=== PATIENT | female | born 1950 | race Caucasian/White ===

== ENCOUNTER → 2016-08-12 | Outpatient (CLI) | payer BC ==
[~2016-08-12] MED LIST: REGADENOSON 0.4 MG/5 ML DISP.SYRIN. IV ONE
== END | disposition home or self-care (01) ==
LOC: PCVCIMAG 08:34
PROVIDERS: ATTEND Internal Medicine Cardiovascular Disease
DX: Z01.810 Encounter for preprocedural cardiovascular examination (principal)
CPT/HCPCS: 78452; 93017; A9500; J2785

== ENCOUNTER → 2016-09-16 | Outpatient (CLI) | payer BC ==
[~2016-09-16] MED LIST changes: +ASCO500T2 PO; +ASPI325T4 PO; +CHOL10003 PO; +GLUC1CAP41 PO; +LIRA0.6P2 SQ; +LOSA1TAB17 PO; +METF-620 PO; +OMEG1CAP6 PO; +OMEP20TA63 PO; +PIOG45TA19 PO; +POTA10TA17 PO; +PROC10TA57 PO; -REGADENOSON 0.4 MG/5 ML DISP.SYRIN. IV ONE
[2016-09-16 11:25] LABS: BASO % 1 % (0-3); EOS % 1 % (0-3); HEMATOCRIT 40.9 % (36.0-47.0); HEMOGLOBIN 14.2 g/dL (12.0-15.5); LYMPH # 0.7 x10^3/uL (1.0-4.8); LYMPH % 16 % (24-48); MEAN CORPUSCULAR HEMOGLOBIN 31 pg (25-35); MEAN CORPUSCULAR HGB CONC 35 g/dL (31-37); MEAN CORPUSCULAR VOLUME 90 fL (79-100); MONO % 2 % (0-9); NEUT % 80 % (31-73); PLATELET COUNT 169 x10^3/uL (140-400); RED BLOOD COUNT 4.53 x10^6/uL (3.50-5.40); RED CELL DISTRIBUTION WIDTH 13.6 % (11.5-14.5); WHITE BLOOD COUNT 4.2 x10^3/uL (4.0-11.0)
[2016-09-16 11:34] LABS: ALBUMIN 3.5 g/dL (3.4-5.0); ALBUMIN/GLOBULIN RATIO 0.8 (1.0-1.7); CALCIUM 8.9 mg/dL (8.5-10.1); CREATININE 2.7 mg/dL (0.6-1.0); GFR 17.7; POTASSIUM 3.8 mmol/L (3.5-5.1); TOTAL BILIRUBIN 0.8 mg/dL (0.2-1.0); TOTAL PROTEIN 7.8 g/dL (6.4-8.2)
[2016-09-16 11:35] LABS: INR 0.9 (0.8-1.1)
== END | disposition home or self-care (01) ==
LOC: LAB 10:52
PROVIDERS: ATTEND Internal Medicine Hematology & Oncology
DX: C34.11 Malignant neoplasm of upper lobe, right bronchus or lung (principal)
CPT/HCPCS: 36415; 80053; 85027; 85610

== ENCOUNTER 2016-09-17 14:03 | Inpatient (IN) | payer BC, MEDICARE ==
[~2016-09-17] VITALS: Ht 167.6 cm; Wt 92.6 kg
[~2016-09-17 14:03] MED LIST changes: +ASPI325T4 PO; -ASPI325T8 PO; -GLIM2TAB PO; -GLIM4TAB PO; -HYDR-2758 PO; -IV NORMAL SALINE 1000ML BAG 1,000 ML IV SCH; -LOSA50TA2 PO; -MAGN400T22 PO; +PIOG45TA19 PO; -PIOG45TA40 PO
[2016-09-17] MEDS ORDERED: ACETAMINOPHEN 325 MG TABLET. PO PRN (15:45)
[2016-09-17] MEDS ORDERED: ONDANSETRON PF 4 MG/2 ML VIAL. IV PRN (15:45)
[2016-09-17] MEDS ORDERED: HYDROcodone/APAP 5/325MG 1 TAB TABLET PO PRN (15:45)
[2016-09-17] MEDS ORDERED: DEXTROSE 50% 25 GM / 50ML DISP.SYRIN. IV PRN (15:45)
[2016-09-17 15:58] VITALS: BP 169/78
[2016-09-17 16:00] VITALS: BP 169/78
[2016-09-17] MEDS ORDERED: hydrALAZINE 20 MG/ML VIAL. IVP PRN (16:30)
--- NOTE | 2016-09-17 16:38 | PDOC1 ---
History and Physical Date of Admission Date of Admission 09/17/16 Identification/Chief Complaint Chief Complaint rashi, hyperglycemia Problems: Source Source: Patient History of Present Illness History of Present Illness 65 F, who was recently diagnosed with stage 3 right lung Ca , on RT and chemo with dr. Mitchell for1 week so far, was sent by dr. Mitchell from the office for RASHI. Pt had mild chest pain when diagnosed with lung Ca, no cough or sob. + recent weight loss. now mild cough with RT daily. She takes metformin 1000mg bid for DM usually, got decadron iv x1 on chemo last Fri, then po bid x3 times, felt sick, hyperglycemia and took extra 2 pills of metformin on Sat, polyuria. She went to check labs on Friday, was found Cr higher and today was >3, which is new to her and then sent there. Glucose >300. no N/V, fever, chills. Past Medical History Cardiovascular: HTN Endocrine: Diabetes Past Surgical History Past Surgical History: No pertinent history Family History Family History: Hypertension Social History Smoke: Quit (for 16ys) ALCOHOL: rare Drugs: None Current Medications Current Medications Current Medications Medications (Trade) Dose Ordered Sig/Michelle Start Time Stop Time Status Last Admin Dose Admin Acetaminophen (Tylenol) 650 mg PRN Q6HRS PRN 09/17/16 15:45 Acetaminophen/ Hydrocodone Bitart (Lortab 5325) 1 tab PRN Q4HRS PRN 09/17/16 15:45 Dextrose (Dextrose 50%-Water Syringe) 12.5 gm PRN Q15MIN PRN 09/17/16 15:45 Heparin Sodium (Porcine) (Heparin Sq) 5,000 unit Q8HRS 09/17/16 22:00 Insulin Aspart (NovoLOG) 0-9 UNITS TIDWMEALS 09/17/16 17:00 Ondansetron HCl (Zofran) 4 mg PRN Q6HRS PRN 09/17/16 15:45 Sodium Chloride 1,000 ml @ 100 mls/hr Q10H 09/17/16 15:45 Allergies Allergies Allergies Coded Allergies Type Severity Reaction Last Updated Verified latex Allergy Intermediate Itching 09/17/16 Yes ROS Review of System CONSTITUTIONAL: No fever or chills EYES: No recent changes SKIN: No rash or itching CARDIOVASCULAR: No chest pain, syncope, palpitations, or edema RESPIRATORY: No SOB or cough GASTROINTESTINAL: No nausea, vomiting or abdominal pain NEUROLOGICAL: No headaches or weakness ENDOCRINE: No cold or heat intolerance GENITOURINARY: No urgency or frequency of urination MUSCULOSKELETAL: No back pain or joint pain LYMPHATICS: No enlarged lymph nodes PSYCHIATRIC: No anxiety or depression Physical Exam Physical Exam GEN.: No apparent distress. Alert and oriented. HEENT: Head is normocephalic, atraumatic NECK: Supple. LUNGS: Clear to auscultation. left upper chest has Chemo port. HEART: RRR, S1, S2 present. Peripheral pulses intact ABDOMEN: Soft, nontender. Positive bowel sounds. EXTREMITIES: Without any cyanosis. NEUROLOGIC: Normal speech, normal tone PSYCHIATRIC: Normal affect, normal mood. SKIN: No ulcerations Vitals Vitals Vital Signs Date Time Temp Pulse Resp B/P (MAP) Pulse Ox O2 Delivery O2 Flow Rate FiO2 09/17/16 16:00 97.8 86 15 169/78 (108) 99 Room Air 97.8 Labs Labs Laboratory Tests Test 09/17/16 15:46 Glucose (Fingerstick) 313 mg/dL (70-99) Laboratory Tests Test 09/17/16 15:46 Glucose (Fingerstick) 313 mg/dL (70-99) VTE Prophylaxis Ordered VTE Prophylaxis Devices: Yes VTE Pharmacological Prophylaxi: Yes Assessment/Plan Assessment/Plan 1. RASHI, 2/2 CHEMO meds, and possible dehydration 2. hyperglycemia with steroid and baseline dm2 3. htn 4. obesity 5. recent diagnosed stage 3 right Lung Ca on chemo and RT 6. elevated transaminitis plan: RT, onco, Renal consult ivf hold metformin, losartan, hctz add amlodipine US renal dvt, gi ppx labs tmr SSI, check hba1c admit >2nights IVAN AYALA MD September 17, 2016 16:37
--- NOTE | 2016-09-17 16:41 | PDOC ---
Provider Note Provider Note Onc consult dictated- [id number] 1. 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 On concurrent chemoradiation with start of cisplatin/ vinblastine on 09/11/16. Will hold chemotherapy until her labs improve, possibly delay 1 week. In the future when she has her next dose of cisplatin on day 29, I will plan to not give the dexamethasone on days 2 through 4 of treatment as she did not have significant nausea, vomiting anyway but did have significant hyperglycemia. 2. Acute kidney failure, likely cisplatin/ increased metformin. I have asked her to hold her metformin. Hopefully will improve with aggressive IVF. 3. Diabetes with hyperglycemia recently from steroids. The steroid should be out of her system, we will not use them again consistently in the future. Metformin on hold. Otherwise only uses iraglutide(+) (VICTOZA). However, her glucose is still nearly 400 and she has never used insulin. Appreciate hospitalist management of her hyperglycemia. 4. Transaminitis, mild. Likely treatment related. Monitor closely. D/W Dr. Hull. EPIFANIO SIBLEY DO September 17, 2016 16:41
[2016-09-17] MEDS: IV NORMAL SALINE 1000ML BAG 1,000 ML IV SCH (17:11)
[2016-09-17] MEDS: INSULIN ASPART 300 UNITS/3 ML INSULN.PEN SQ SCH (17:22)
[2016-09-17 19:00] VITALS: BP 152/61
[2016-09-17] MEDS ORDERED: FLU VACC QUAD 2016-17 (36MOS+)/PF 0.5 ML SYRINGE. VAX IM ONE (19:15)
[2016-09-17] MEDS: OMEGA-3 FATTY ACIDS/FISH OIL 1,000 MG CAPSULE. PO SCH (20:27)
[2016-09-17] MEDS: HEPARIN PF for SUB-Q USE 5,000 UNIT/0.5 ML VIAL. SQ SCH (21:23)
[2016-09-17 23:43] VITALS: BP 136/54
[2016-09-18 03:00] VITALS: BP 160/49
[2016-09-18] MEDS: IV NORMAL SALINE 1000ML BAG 1,000 ML IV SCH ×2 (04:28→16:21)
[2016-09-18 05:01] LABS: BASO % 1 % (0-3); EOS % 1 % (0-3); HEMATOCRIT 34.4 % (36.0-47.0); HEMOGLOBIN 12.1 g/dL (12.0-15.5); LYMPH # 0.7 x10^3/uL (1.0-4.8); LYMPH % 16 % (24-48); MEAN CORPUSCULAR HEMOGLOBIN 32 pg (25-35); MEAN CORPUSCULAR HGB CONC 35 g/dL (31-37); MEAN CORPUSCULAR VOLUME 90 fL (79-100); MONO % 2 % (0-9); NEUT % 80 % (31-73); PLATELET COUNT 129 x10^3/uL (140-400); RED BLOOD COUNT 3.83 x10^6/uL (3.50-5.40); RED CELL DISTRIBUTION WIDTH 13.2 % (11.5-14.5); WHITE BLOOD COUNT 4.1 x10^3/uL (4.0-11.0)
[2016-09-18 05:23] LABS: CALCIUM 8.3 mg/dL (8.5-10.1); CREATININE 1.9 mg/dL (0.6-1.0); GFR 26.5; POTASSIUM 3.7 mmol/L (3.5-5.1)
[2016-09-18] MEDS: HEPARIN PF for SUB-Q USE 5,000 UNIT/0.5 ML VIAL. SQ SCH ×3 (05:33→20:51)
--- NOTE | 2016-09-18 06:41 | CONS ---
DATE OF CONSULTATION: 09/17/2016 REFERRING PROVIDER: Dr. Andres. REASON FOR CONSULTATION: Lung cancer. HISTORY OF PRESENT ILLNESS: The patient is a 65-year-old female, who was diagnosed in 06/[address] scan showed a 4.1 cm right upper lung mass abutting the chest wall, subsequent PET scan revealed a right pretracheal node with increased uptake measuring 2.5 cm EBUS was performed showing an enlarged superior mediastinal lymph node with biopsy confirming squamous cell carcinoma. Therefore, she is stage 3A squamous cell carcinoma of the right upper lobe. MRI brain was negative. She was started 1 week ago on concurrent chemoradiation with cisplatin/vinblastine due to the emetogenic potential of cisplatin. She received dexamethasone on days 2 through 4, following her treatment, which was given on 09/11/2016. However, her blood sugars increased dramatically to close to 500. She therefore began taking extra doses of her metformin 1000 mg pills. She has had worsening fatigue, but otherwise feels well without any nausea or vomiting. She had labs checked on Friday, which revealed a creatinine of 2.7, BUN near 89. This was acutely new as her labs were unremarkable prior to receiving chemotherapy. I repeated labs today and her creatinine has risen to 3.1. Her blood sugar remains around 400, fasting. She has never taken insulin. She states that she is only taking Victoza in addition to her metformin. She tried to call her PCP for additional management, but reports that he is on extended leave without available coverage. 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 PAST MEDICAL HISTORY: Diabetes, hypertension, arthritis, lung cancer and previous stroke. PAST SURGICAL HISTORY: Partial colectomy due to a large benign polyp removal, carotid endarterectomy, tonsillectomy, tubal ligation and appendectomy. FAMILY HISTORY: Mom had diabetes and hypertension. Dad had diabetes, hypertension and stroke. Sister with diabetes and hypertension. Brother with diabetes and hypertension. SOCIAL HISTORY: Previously smoked 2 packs per day for 35 years, quit in 2005. No alcohol or drug use. ALLERGIES: No known drug allergies. CURRENT MEDICATIONS: Heparin, NovoLog, Zofran, Tylenol REVIEW OF SYSTEMS: Ten-point review of systems completed and unremarkable with the exception of the minimal numbness in her bilateral hands and feet, chronic hoarse voice, minimal tinnitus for years, otherwise unremarkable. PHYSICAL EXAMINATION: VITAL SIGNS: Temperature 97.8, pulse 86, respiratory rate 15, blood pressure 169/78, 99% O2 on room air. GENERAL: She is alert and oriented and in no distress. HEENT: Extraocular muscles are intact. Mucous membranes are moist. CARDIOVASCULAR: Heart is regular in rhythm and rate. LUNGS: Clear to auscultation bilaterally. ABDOMEN: Soft, nontender. EXTREMITIES: No edema. NEUROLOGIC: No focal deficits. IMAGING AND LABORATORY DATA: Recent CBC unremarkable. Sodium 134, chloride 96, BUN 89, creatinine 3.1, blood glucose 385, AST 67, ALT 78, recent MRI brain was negative for metastases. ASSESSMENT AND PLAN: The patient is a 65-year-old female with the following medical problems: 1. Stage 3A squamous cell carcinoma of the right upper lung with biopsy proven mediastinal lymph node involvement. She is currently on concurrent chemoradiation and started cisplatin/vinblastine on 09/11/2016. She is still undergoing daily radiation and I have spoken with Dr. Barnes about this. However, given her acute issues, we will hold the vinblastine, which was scheduled for tomorrow and delay about 1 week when she recovers from these acute events. In the future, I will not give dexamethasone for delayed nausea/vomiting. She did not experience this and certainly worsen her hyperglycemia. 2. Acute kidney failure likely cisplatin related with increase metformin, self-initiated. I asked her in clinic to hold metformin. Her labs were unremarkable prior to beginning chemotherapy. Hopefully, with aggressive IV fluids, we can improve her renal function quickly. Her next dose of cisplatin would not be due for approximately 1 month. I can certainly dose reduced it in the future, if needed as well. 3. Diabetes with uncontrolled hyperglycemia, recently from steroids. She unfortunately took extra doses of her metformin in an attempt to control her blood sugars. We will be holding the metformin. I appreciate the assistance of the hospitalist in managing her blood sugars. She has never used insulin before. 4. Transaminitis, likely treatment related. Continue to monitor. I discussed her admission and current events with both Dr. Andres and Dr. Barnes. I will continue to follow along. EPIFANIO SIBLEY DO DR: REBECCA/weston JOB#: [id number] / [id number] MTDD
--- NOTE | 2016-09-18 07:27 | RAD ---
Renal ultrasound, 09/17/2016: History: Acute renal insufficiency The right kidney measures 11.5 cm in length while the left kidney measures 11.3 cm. There is no evidence of hydronephrosis or a renal mass. The renal parenchymal echogenicity is within normal limits. No abnormal perinephric process is seen. Limited views of urinary bladder show no abnormality. IMPRESSION: No significant renal abnormality is detected.
[2016-09-18 07:47] VITALS: BP 120/60
--- NOTE | 2016-09-18 08:44 | PDOC ---
Subjective: Subjective: Onc f/u- Lung ca No changes Cr improving Fatigue better Objective: Vital Signs: Vital Signs Date Time Temp Pulse Resp B/P (MAP) Pulse Ox O2 Delivery O2 Flow Rate FiO2 09/18/16 07:47 97.9 83 20 120/60 (80) 94 Room Air 97.9 Physical Exam: Extremities: No edema General: Alert, Oriented X3, Cooperative, No acute distress Lungs: Other (no resp distress) Psych/Mental Status: Mental status NL, Mood NL Labs/Imaging: Cr 3.1 --> 1.9 BG ~ 200 rather than 400 Assessment/Plan A/P: 1. Stage 3A squamous cell carcinoma of the right upper lung mediastinal lymph node involvement - On concurrent chemoradiation with started cisplatin/vinblastine on 09/11/2016 - Undergoing daily RT; Dr. Barnes is aware of her admission. - Will delay vinblastine until discharged 2. Acute kidney failure likely cisplatin related with increased metformin - Improving with aggressive IVF 3. Diabetes with hyperglycemia, recently from steroids. - Metformin on hold, usually only also takes Victoza - Had never used insulin previously - Please DC with Aspart/ sliding scale plan or other preferred method. We will minimize steroids in the future but she may need again in ~ 3 wk with 2nd dose cisplatin - PCP out on leave, community health education coordinator out of network, so need good plan in place for ongoing hyperglycemia that may occur in future 4. Transaminitis, likely treatment related. Continue to monitor. Ok to DC tomorrow if Cr and BG improved. My office will call to set up next f/u and chemo dosing. EPIFANIO SIBLEY DO September 18, 2016 08:44
[2016-09-18] MEDS: amLODIPine BESYLATE 5 MG TABLET PO SCH (08:47)
[2016-09-18] MEDS: OMEGA-3 FATTY ACIDS/FISH OIL 1,000 MG CAPSULE. PO SCH ×2 (08:47→21:00)
[2016-09-18] MEDS: ASPIRIN 325 MG TABLET PO SCH (08:47)
[2016-09-18] MEDS: ASCORBIC ACID 500 MG TABLET PO SCH (08:47)
[2016-09-18] MEDS: CHOLECALCIFEROL (VITAMIN D3) 1,000 UNIT TABLET PO SCH (08:47)
[2016-09-18] MEDS: INSULIN ASPART 300 UNITS/3 ML INSULN.PEN SQ SCH ×3 (08:54→17:30)
[2016-09-18] MEDS ORDERED: PNEUMOC CONJ VACC 23-VALENT 0.5 ML VIAL. VAX IM ONE (09:00)
--- NOTE | 2016-09-18 10:37 | PDOC2 ---
CONSULT Date of Consult Date of Consult DATE: 09/18/16 TIME: 10:32 Reason for Consult Reason for Consult: RASHI Referring Physician Referring Physician: JAMIE Identification/Chief Complaint Chief Complaint ABNORMAL LABS Source Source: Chart review, Patient History of Present Illness Reason for Visit: THIS IS A 65 YR OLD ADMITTED WITH ABNORMAL OP LABS. HER CR WAS 2.7 THE UP TO 3.3. SHE HAS NO CKD HX. HX NOTABLE FOR UNGA BASED CHEMOTHERAPY LAST WEEK. SHE HAS RECENTLY BEEN DIAGNOSED WITH LUNG CANCER. NO NSAIDS NOTED. SHE HAS ALSO NOTED THAT HER BLOOD SUGARS HAVE BEEN VERY HIGH LATELY DUE TO USE OF STEROID PART OF THE CHEMO REGIMEN. SHE HAS NOTED AN INCREASE IN URINATION AND POOR APPETITE SINCE LAST WEEK. NO HX OF ANY KIDNEY OR BLADDER SURGERIES HEMATURIA DYSURIA OR FREQUENCY NOTED Past Medical History Cardiovascular: HTN Endocrine: Diabetes Past Surgical History Past Surgical History: No pertinent history Family History Family History: Hypertension Social History Quit (for 16ys) ALCOHOL: rare Drugs: None Lives: with Family Current Medications Current Medications Current Medications Acetaminophen/ Hydrocodone Bitart (Lortab 5/325) 1 tab PRN Q4HRS PRN PO MILD PAIN; Start 09/17/16 at 15:45 Acetaminophen (Tylenol) 650 mg PRN Q6HRS PRN PO Headaches, Temp > 101.5F; Start 09/17/16 at 15:45 Heparin Sodium (Porcine) (Heparin Sq) 5,000 unit Q8HRS SQ Last administered on 09/18/16 05:33; Start 09/17/16 at 22:00 Ondansetron HCl (Zofran) 4 mg PRN Q6HRS PRN IV NAUSEA/VOMITING; Start 09/17/16 at 15:45 Insulin Aspart (NovoLOG) 0-9 UNITS TIDWMEALS SQ Last administered on 09/18/16 08:54; Start 09/17/16 at 17:00 Dextrose (Dextrose 50%-Water Syringe) 12.5 gm PRN Q15MIN PRN IV SEE COMMENTS; Start 09/17/16 at 15:45 Sodium Chloride 1,000 ml @ 100 mls/hr Q10H IV Last administered on 09/18/16 04:28; Start 09/17/16 at 15:45 Hydralazine HCl (Apresoline) 10 mg PRN Q4HRS PRN IVP ELEVATED BP, SEE COMMENTS ; Start 09/17/16 at 16:30 Ascorbic Acid (Vitamin C) 500 mg DAILY PO Last administered on 09/18/16 08:47 ; Start 09/18/16 at 09:00 Aspirin ([place] Aspirin) 325 mg DAILYWBKFT PO Last administered on 09/18/16 08: 47; Start 09/18/16 at 08:00 Vitamin D (Vitamin D3) 1,000 unit DAILY PO Last administered on 09/18/16 08:47 ; Start 09/18/16 at 09:00 Fish Oil (Fish Oil) 2,000 mg BID PO Last administered on 09/18/16 08:47; Start 09/17/16 at 21:00 Pantoprazole Sodium (Protonix) 40 mg DAILYAC PO ; Start 09/18/16 at 07:30 Amlodipine Besylate (Norvasc) 5 mg DAILY PO Last administered on 09/18/16 08: 47; Start 09/18/16 at 09:00 Influenza Virus Vaccine Quadrival (Fluarix Quad 6933-0832 Syringe) 0.5 ml ONCE ONCE VAX IM ; Start 09/17/16 at 19:15; Stop 09/17/16 at 19:16; Status UNV Pneumococcal Polyvalent Vaccine (Pneumovax 23) 0.5 ml ONCE ONCE VAX IM ; Start 09/18/16 at 09:00; Stop 09/18/16 at 09:01; Status DC Active Scripts Active Reported Glucosamine & Chondroitin Cap (Glucosa Kothari 2KCL/Chondroitin Kothari) 1 Each Capsule 1 Each PO DAILY Compazine (Prochlorperazine Maleate) 10 Mg Tablet 10 Mg PO Q6HRS PRN Fish Oil 1,000 Mg Capsule ([place]-3 Fatty Acids/Fish Oil) 1 Each Capsule 2 Each PO BID Vitamin D3 (Cholecalciferol (Vitamin D3)) 1,000 Unit Tablet 1,000 Unit PO DAILY Aspirin 325 Mg Tablet 325 Mg PO DAILY Vitamin C (Ascorbic Acid) 500 Mg Tablet 500 Mg PO DAILY Potassium Citrate 10 Meq Tablet.er 99 Mg PO DAILY Actos (Pioglitazone Hcl) 45 Mg Tablet 45 Mg PO DAILY Prilosec Otc (Omeprazole Magnesium) 20 Mg Tablet.dr 20 Mg PO DAILY Metformin Hcl 1,000 Mg Tablet 1,000 Mg PO BIDWMEALS Victoza 3-Mic (Liraglutide) 0.6 Mg/0.1 Ml Pen.injctr 0.6 Mg SQ DAILY Losartan-Hctz 100-25 Mg Tab (Losartan/Hydrochlorothiazide) 1 Each Tablet 1 Each PO DAILY Allergies Allergies: Coded Allergies: latex (Verified Allergy, Intermediate, Itching, 09/17/16) ROS General: YES: Fatigue, Appetite PSYCHOLOGICAL ROS: YES: Depression Eyes: Yes Decreased vision HEENT: YES: Heacaches Respiratory: YES: Cough, Shortness of breath Gastrointestinal: Yes Nausea, Yes Other (POOR APPETITE) Genitourinary: YES Frequency, YES Other (POLYURIA) Musculoskeletal: Yes Muscular Weakness Neurological: Yes Weakness Skin: Yes Dry Skin Physical Exam General: Alert, Oriented X3, Cooperative, No acute distress HEENT: Atraumatic, PERRLA Lungs: Clear to auscultation Heart: Regular rate, Normal S1 Abdomen: Normal bowel sounds, Soft, No tenderness Extremities: No clubbing Neuro: Normal speech, Cranial nerves 3-12 NL Psych/Mental Status: Mental status NL, Mood NL MUSCULOSKELETAL: No deformity, No swelling Vitals VITALS Vital Signs Date Time Temp Pulse Resp B/P (MAP) Pulse Ox O2 Delivery O2 Flow Rate FiO2 09/18/16 08:47 83 120/60 09/18/16 08:00 Room Air 09/18/16 07:47 97.9 20 94 97.9 Labs Labs Laboratory Tests Test 09/17/16 15:46 09/17/16 21:31 09/18/16 04:35 09/18/16 08:03 Glucose (Fingerstick) 313 mg/dL (70-99) 203 mg/dL (70-99) 207 mg/dL (70-99) White Blood Count 4.1 x10^3/uL (4.0-11.0) Red Blood Count 3.83 x10^6/uL (3.50-5.40) Hemoglobin 12.1 g/dL (12.0-15.5) Hematocrit 34.4 % (36.0-47.0) Mean Corpuscular Volume 90 fL (79-100) Mean Corpuscular Hemoglobin 32 pg (25-35) Mean Corpuscular Hemoglobin Concent 35 g/dL (31-37) Red Cell Distribution Width 13.2 % (11.5-14.5) Platelet Count 129 x10^3/uL (140-400) Neutrophils (%) (Auto) 80 % (31-73) Lymphocytes (%) (Auto) 16 % (24-48) Monocytes (%) (Auto) 2 % (0-9) Eosinophils (%) (Auto) 1 % (0-3) Basophils (%) (Auto) 1 % (0-3) Neutrophils # (Auto) 3.3 x10^3uL (1.8-7.7) Lymphocytes # (Auto) 0.7 x10^3/uL (1.0-4.8) Monocytes # (Auto) 0.1 x10^3/uL (0.0-1.1) Eosinophils # (Auto) 0.0 x10^3/uL (0.0-0.7) Basophils # (Auto) 0.0 x10^3/uL (0.0-0.2) Sodium Level 139 mmol/L (136-145) Potassium Level 3.7 mmol/L (3.5-5.1) Chloride Level 103 mmol/L (98-107) Carbon Dioxide Level 26 mmol/L (21-32) Anion Gap 10 (6-14) Blood Urea Nitrogen 64 mg/dL (7-20) Creatinine 1.9 mg/dL (0.6-1.0) Estimated GFR (Cockcroft-Gault) 26.5 Glucose Level 210 mg/dL (70-99) Calcium Level 8.3 mg/dL (8.5-10.1) Laboratory Tests Test 09/17/16 15:46 09/17/16 21:31 09/18/16 04:35 09/18/16 08:03 Glucose (Fingerstick) 313 mg/dL (70-99) 203 mg/dL (70-99) 207 mg/dL (70-99) White Blood Count 4.1 x10^3/uL (4.0-11.0) Red Blood Count 3.83 x10^6/uL (3.50-5.40) Hemoglobin 12.1 g/dL (12.0-15.5) Hematocrit 34.4 % (36.0-47.0) Mean Corpuscular Volume 90 fL (79-100) Mean Corpuscular Hemoglobin 32 pg (25-35) Mean Corpuscular Hemoglobin Concent 35 g/dL (31-37) Red Cell Distribution Width 13.2 % (11.5-14.5) Platelet Count 129 x10^3/uL (140-400) Neutrophils (%) (Auto) 80 % (31-73) Lymphocytes (%) (Auto) 16 % (24-48) Monocytes (%) (Auto) 2 % (0-9) Eosinophils (%) (Auto) 1 % (0-3) Basophils (%) (Auto) 1 % (0-3) Neutrophils # (Auto) 3.3 x10^3uL (1.8-7.7) Lymphocytes # (Auto) 0.7 x10^3/uL (1.0-4.8) Monocytes # (Auto) 0.1 x10^3/uL (0.0-1.1) Eosinophils # (Auto) 0.0 x10^3/uL (0.0-0.7) Basophils # (Auto) 0.0 x10^3/uL (0.0-0.2) Sodium Level 139 mmol/L (136-145) Potassium Level 3.7 mmol/L (3.5-5.1) Chloride Level 103 mmol/L (98-107) Carbon Dioxide Level 26 mmol/L (21-32) Anion Gap 10 (6-14) Blood Urea Nitrogen 64 mg/dL (7-20) Creatinine 1.9 mg/dL (0.6-1.0) Estimated GFR (Cockcroft-Gault) 26.5 Glucose Level 210 mg/dL (70-99) Calcium Level 8.3 mg/dL (8.5-10.1) Assessment/Plan Assessment/Plan IMP RASHI DEHYDRATION LUNG CA S/P CHEMO LAST WEEK DM II HYPERGLYCEMIA WITH POLYURIA PLAN HYDRATION LABS IN AM CHECK UA CEDRIC TRISTAN MD September 18, 2016 10:37
[2016-09-18] MEDS: PANTOPRAZOLE 40 MG TABLET.DR. PO SCH (10:58)
[2016-09-18 11:04] VITALS: BP 122/54
--- NOTE | 2016-09-18 11:53 | PDOC ---
Provider Note Provider Note [address] IIIA (T2 N2 M0) squamous cell carcinoma of RUL and medistinum dx at EBUS and mediastinal bx 08/14/2016. Began chest radiation and CDDP based chemo on 09/09/2016. She has had 7 radiation treatments thus far. Has hx of DM. Developed hyperglycemia and ARF with cr 2.7 progressing to 3.1 and admitted for BS control and IVF. CBC ok. Now feeling better. BS controlled with SSI. Cr now 1.9. Impression: St III squamous cell carcinoma of the RUL and mediastinum. ARF and hyperglycemia improved. Will resume chest radiation today. Discussed with patient and Dr Mitchell. RADHA ACEVES MD September 18, 2016 11:53
[2016-09-18 11:54] LABS: BILIRUBIN,URINE NEGATIVE (NEG); GLUCOSE,URINE >=1000 mg/dL (NEG); NITRITE,URINE NEGATIVE (NEG); PH,URINE 5.5; PROTEIN,URINE NEGATIVE (NEG-TRACE); UROBILINOGEN,URINE 0.2 mg/dL (0.2 mg/dL)
[2016-09-18 12:24] LABS: BACTERIA,URINE FEW /HPF (0-FEW); RBC,URINE OCC /HPF (0-2); SQUAMOUS EPITHELIAL CELL,UR FEW /LPF
--- NOTE | 2016-09-18 13:37 | PDOC ---
PROGRESS NOTES Chief Complaint Chief Complaint 1. RASHI, 2/2 CHEMO meds ATN, and possible dehydration 2. hyperglycemia with steroid and baseline dm2 3. htn 4. obesity 5. recent diagnosed right Lung Ca , stage IIIA [id number] chemo and RT 6. elevated transaminitis plan: RT, onco, Renal consult, cont RT daily ivf hold metformin, losartan, hctz add amlodipine US renal neg dvt, gi ppx labs tmr SSI, check hba1c admit >2nights History of Present Illness History of Present Illness feels better today Cr 1.9 better Vitals Vitals Vital Signs Date Time Temp Pulse Resp B/P (MAP) Pulse Ox O2 Delivery O2 Flow Rate FiO2 09/18/16 11:04 97.9 78 20 122/54 (76) 94 Room Air 97.9 Physical Exam General: Alert, Oriented X3, Cooperative, No acute distress Heart: Regular rate, Normal S1 Lungs: Clear Abdomen: Normal bowel sounds, Soft, No tenderness Extremities: No clubbing Labs LABS Laboratory Tests Test 09/17/16 15:46 09/17/16 21:31 09/18/16 04:35 09/18/16 08:03 Glucose (Fingerstick) 313 mg/dL (70-99) 203 mg/dL (70-99) 207 mg/dL (70-99) White Blood Count 4.1 x10^3/uL (4.0-11.0) Red Blood Count 3.83 x10^6/uL (3.50-5.40) Hemoglobin 12.1 g/dL (12.0-15.5) Hematocrit 34.4 % (36.0-47.0) Mean Corpuscular Volume 90 fL (79-100) Mean Corpuscular Hemoglobin 32 pg (25-35) Mean Corpuscular Hemoglobin Concent 35 g/dL (31-37) Red Cell Distribution Width 13.2 % (11.5-14.5) Platelet Count 129 x10^3/uL (140-400) Neutrophils (%) (Auto) 80 % (31-73) Lymphocytes (%) (Auto) 16 % (24-48) Monocytes (%) (Auto) 2 % (0-9) Eosinophils (%) (Auto) 1 % (0-3) Basophils (%) (Auto) 1 % (0-3) Neutrophils # (Auto) 3.3 x10^3uL (1.8-7.7) Lymphocytes # (Auto) 0.7 x10^3/uL (1.0-4.8) Monocytes # (Auto) 0.1 x10^3/uL (0.0-1.1) Eosinophils # (Auto) 0.0 x10^3/uL (0.0-0.7) Basophils # (Auto) 0.0 x10^3/uL (0.0-0.2) Sodium Level 139 mmol/L (136-145) Potassium Level 3.7 mmol/L (3.5-5.1) Chloride Level 103 mmol/L (98-107) Carbon Dioxide Level 26 mmol/L (21-32) Anion Gap 10 (6-14) Blood Urea Nitrogen 64 mg/dL (7-20) Creatinine 1.9 mg/dL (0.6-1.0) Estimated GFR (Cockcroft-Gault) 26.5 Glucose Level 210 mg/dL (70-99) Calcium Level 8.3 mg/dL (8.5-10.1) Test 09/18/16 11:38 09/18/16 11:40 Glucose (Fingerstick) 288 mg/dL (70-99) Urine Collection Type Unknown Urine Color Yellow Urine Clarity Clear Urine pH 5.5 Urine Specific [place] 1.015 Urine Protein Negative mg/dL (NEG-TRACE) Urine Glucose (UA) >=1000 mg/dL (NEG) Urine Ketones (Stick) Negative mg/dL (NEG) Urine Blood Negative (NEG) Urine Nitrite Negative (NEG) Urine Bilirubin Negative (NEG) Urine Urobilinogen Dipstick 0.2 mg/dL (0.2 mg/dL) Urine Leukocyte Esterase Negative (NEG) Urine RBC Occ /HPF (0-2) Urine WBC 1-4 /HPF (0-4) Urine Squamous Epithelial Cells Few /LPF Urine Bacteria Few /HPF (0-FEW) Review of Systems Review of Systems no fever, chills, sob or chest pain Comment Review of Relevant I have reviewed the following items yuly (where applicable) has been applied. Labs Laboratory Tests Test 09/17/16 15:46 09/17/16 21:31 09/18/16 04:35 09/18/16 08:03 Glucose (Fingerstick) 313 mg/dL (70-99) 203 mg/dL (70-99) 207 mg/dL (70-99) White Blood Count 4.1 x10^3/uL (4.0-11.0) Red Blood Count 3.83 x10^6/uL (3.50-5.40) Hemoglobin 12.1 g/dL (12.0-15.5) Hematocrit 34.4 % (36.0-47.0) Mean Corpuscular Volume 90 fL (79-100) Mean Corpuscular Hemoglobin 32 pg (25-35) Mean Corpuscular Hemoglobin Concent 35 g/dL (31-37) Red Cell Distribution Width 13.2 % (11.5-14.5) Platelet Count 129 x10^3/uL (140-400) Neutrophils (%) (Auto) 80 % (31-73) Lymphocytes (%) (Auto) 16 % (24-48) Monocytes (%) (Auto) 2 % (0-9) Eosinophils (%) (Auto) 1 % (0-3) Basophils (%) (Auto) 1 % (0-3) Neutrophils # (Auto) 3.3 x10^3uL (1.8-7.7) Lymphocytes # (Auto) 0.7 x10^3/uL (1.0-4.8) Monocytes # (Auto) 0.1 x10^3/uL (0.0-1.1) Eosinophils # (Auto) 0.0 x10^3/uL (0.0-0.7) Basophils # (Auto) 0.0 x10^3/uL (0.0-0.2) Sodium Level 139 mmol/L (136-145) Potassium Level 3.7 mmol/L (3.5-5.1) Chloride Level 103 mmol/L (98-107) Carbon Dioxide Level 26 mmol/L (21-32) Anion Gap 10 (6-14) Blood Urea Nitrogen 64 mg/dL (7-20) Creatinine 1.9 mg/dL (0.6-1.0) Estimated GFR (Cockcroft-Gault) 26.5 Glucose Level 210 mg/dL (70-99) Calcium Level 8.3 mg/dL (8.5-10.1) Test 09/18/16 11:38 09/18/16 11:40 Glucose (Fingerstick) 288 mg/dL (70-99) Urine Collection Type Unknown Urine Color Yellow Urine Clarity Clear Urine pH 5.5 Urine Specific [place] 1.015 Urine Protein Negative mg/dL (NEG-TRACE) Urine Glucose (UA) >=1000 mg/dL (NEG) Urine Ketones (Stick) Negative mg/dL (NEG) Urine Blood Negative (NEG) Urine Nitrite Negative (NEG) Urine Bilirubin Negative (NEG) Urine Urobilinogen Dipstick 0.2 mg/dL (0.2 mg/dL) Urine Leukocyte Esterase Negative (NEG) Urine RBC Occ /HPF (0-2) Urine WBC 1-4 /HPF (0-4) Urine Squamous Epithelial Cells Few /LPF Urine Bacteria Few /HPF (0-FEW) Laboratory Tests Test 09/17/16 15:46 09/17/16 21:31 09/18/16 04:35 09/18/16 08:03 Glucose (Fingerstick) 313 mg/dL (70-99) 203 mg/dL (70-99) 207 mg/dL (70-99) White Blood Count 4.1 x10^3/uL (4.0-11.0) Red Blood Count 3.83 x10^6/uL (3.50-5.40) Hemoglobin 12.1 g/dL (12.0-15.5) Hematocrit 34.4 % (36.0-47.0) Mean Corpuscular Volume 90 fL (79-100) Mean Corpuscular Hemoglobin 32 pg (25-35) Mean Corpuscular Hemoglobin Concent 35 g/dL (31-37) Red Cell Distribution Width 13.2 % (11.5-14.5) Platelet Count 129 x10^3/uL (140-400) Neutrophils (%) (Auto) 80 % (31-73) Lymphocytes (%) (Auto) 16 % (24-48) Monocytes (%) (Auto) 2 % (0-9) Eosinophils (%) (Auto) 1 % (0-3) Basophils (%) (Auto) 1 % (0-3) Neutrophils # (Auto) 3.3 x10^3uL (1.8-7.7) Lymphocytes # (Auto) 0.7 x10^3/uL (1.0-4.8) Monocytes # (Auto) 0.1 x10^3/uL (0.0-1.1) Eosinophils # (Auto) 0.0 x10^3/uL (0.0-0.7) Basophils # (Auto) 0.0 x10^3/uL (0.0-0.2) Sodium Level 139 mmol/L (136-145) Potassium Level 3.7 mmol/L (3.5-5.1) Chloride Level 103 mmol/L (98-107) Carbon Dioxide Level 26 mmol/L (21-32) Anion Gap 10 (6-14) Blood Urea Nitrogen 64 mg/dL (7-20) Creatinine 1.9 mg/dL (0.6-1.0) Estimated GFR (Cockcroft-Gault) 26.5 Glucose Level 210 mg/dL (70-99) Calcium Level 8.3 mg/dL (8.5-10.1) Test 09/18/16 11:38 09/18/16 11:40 Glucose (Fingerstick) 288 mg/dL (70-99) Urine Collection Type Unknown Urine Color Yellow Urine Clarity Clear Urine pH 5.5 Urine Specific [place] 1.015 Urine Protein Negative mg/dL (NEG-TRACE) Urine Glucose (UA) >=1000 mg/dL (NEG) Urine Ketones (Stick) Negative mg/dL (NEG) Urine Blood Negative (NEG) Urine Nitrite Negative (NEG) Urine Bilirubin Negative (NEG) Urine Urobilinogen Dipstick 0.2 mg/dL (0.2 mg/dL) Urine Leukocyte Esterase Negative (NEG) Urine RBC Occ /HPF (0-2) Urine WBC 1-4 /HPF (0-4) Urine Squamous Epithelial Cells Few /LPF Urine Bacteria Few /HPF (0-FEW) Medications Current Medications Acetaminophen/ Hydrocodone Bitart (Lortab 5/325) 1 tab PRN Q4HRS PRN PO MILD PAIN; Start 09/17/16 at 15:45 Acetaminophen (Tylenol) 650 mg PRN Q6HRS PRN PO Headaches, Temp > 101.5F; Start 09/17/16 at 15:45 Heparin Sodium (Porcine) (Heparin Sq) 5,000 unit Q8HRS SQ Last administered on 09/18/16t 05:33; Start 09/17/16 at 22:00 Ondansetron HCl (Zofran) 4 mg PRN Q6HRS PRN IV NAUSEA/VOMITING; Start 09/17/16 at 15:45 Insulin Aspart (NovoLOG) 0-9 UNITS TIDWMEALS SQ Last administered on 09/18/16 12:36; Start 09/17/16 at 17:00 Dextrose (Dextrose 50%-Water Syringe) 12.5 gm PRN Q15MIN PRN IV SEE COMMENTS; Start 09/17/16 at 15:45 Sodium Chloride 1,000 ml @ 100 mls/hr Q10H IV Last administered on 09/18/16 04:28; Start 09/17/16 at 15:45 Hydralazine HCl (Apresoline) 10 mg PRN Q4HRS PRN IVP ELEVATED BP, SEE COMMENTS ; Start 09/17/16 at 16:30 Ascorbic Acid (Vitamin C) 500 mg DAILY PO Last administered on 09/18/16 08:47 ; Start 09/18/16 at 09:00 Aspirin ([place] Aspirin) 325 mg DAILYWBKFT PO Last administered on 09/18/16 08: 47; Start 09/18/16 at 08:00 Vitamin D (Vitamin D3) 1,000 unit DAILY PO Last administered on 09/18/16 08:47 ; Start 09/18/16 at 09:00 Fish Oil (Fish Oil) 2,000 mg BID PO Last administered on 09/18/16 08:47; Start 09/17/16 at 21:00 Pantoprazole Sodium (Protonix) 40 mg DAILYAC PO Last administered on 09/18/16 10:58; Start 09/18/16 at 07:30 Amlodipine Besylate (Norvasc) 5 mg DAILY PO Last administered on 09/18/16 08: 47; Start 09/18/16 at 09:00 Influenza Virus Vaccine Quadrival (Fluarix Quad [id number] Syringe) 0.5 ml ONCE ONCE VAX IM ; Start 09/17/16 at 19:15; Stop 09/17/16 at 19:16; Status UNV Pneumococcal Polyvalent Vaccine (Pneumovax 23) 0.5 ml ONCE ONCE VAX IM ; Start 09/18/16 at 09:00; Stop 09/18/16 at 09:01; Status DC Active Scripts Active Reported Glucosamine & Chondroitin Cap (Glucosa Kothari 2KCL/Chondroitin Kothari) 1 Each Capsule 1 Each PO DAILY Compazine (Prochlorperazine Maleate) 10 Mg Tablet 10 Mg PO Q6HRS PRN Fish Oil 1,000 Mg Capsule ([place]-3 Fatty Acids/Fish Oil) 1 Each Capsule 2 Each PO BID Vitamin D3 (Cholecalciferol (Vitamin D3)) 1,000 Unit Tablet 1,000 Unit PO DAILY Aspirin 325 Mg Tablet 325 Mg PO DAILY Vitamin C (Ascorbic Acid) 500 Mg Tablet 500 Mg PO DAILY Potassium Citrate 10 Meq Tablet.er 99 Mg PO DAILY Actos (Pioglitazone Hcl) 45 Mg Tablet 45 Mg PO DAILY Prilosec Otc (Omeprazole Magnesium) 20 Mg Tablet.dr 20 Mg PO DAILY Metformin Hcl 1,000 Mg Tablet 1,000 Mg PO BIDWMEALS Victoza 3-Mic (Liraglutide) 0.6 Mg/0.1 Ml Pen.injctr 0.6 Mg SQ DAILY Losartan-Hctz 100-25 Mg Tab (Losartan/Hydrochlorothiazide) 1 Each Tablet 1 Each PO DAILY Vitals/I & O Vital Sign - Last 24 Hours 09/17/16 09/17/16 09/17/16 09/17/16 15:58 16:00 19:00 20:00 Temp 97.8 97.8 97.7 97.8 97.8 97.7 Pulse 86 86 87 Resp 15 15 16 B/P (MAP) 169/78 (108) 169/78 (108) 152/61 (91) Pulse Ox 99 99 96 O2 Delivery Room Air Room Air Room Air Room Air 09/17/16 09/18/16 09/18/16 09/18/16 23:43 03:00 07:47 08:00 Temp 99.2 98.4 97.9 99.2 98.4 97.9 Pulse 86 82 83 Resp 18 20 20 B/P (MAP) 136/54 (81) 160/49 (86) 120/60 (80) Pulse Ox 97 95 94 O2 Delivery Room Air Room Air Room Air Room Air 09/18/16 09/18/16 08:47 11:04 Temp 97.9 97.9 Pulse 83 78 Resp 20 B/P (MAP) 120/60 122/54 (76) Pulse Ox 94 O2 Delivery Room Air Intake and Output 09/17/16 09/17/16 09/18/16 15:00 23:00 07:00 Intake Total 300 ml 1790 ml Output Total 1200 ml Balance 300 ml 590 ml JAMIE,CHUNMEI MD September 18, 2016 13:37
[2016-09-18 15:29] VITALS: BP 135/50
[2016-09-18 19:40] VITALS: BP 172/68
[2016-09-18 23:40] VITALS: BP 98/45
[2016-09-19] MEDS: IV NORMAL SALINE 1000ML BAG 1,000 ML IV SCH ×2 (01:39→07:45)
[2016-09-19 03:35] VITALS: BP 138/69
[2016-09-19] MEDS: HEPARIN PF for SUB-Q USE 5,000 UNIT/0.5 ML VIAL. SQ SCH ×3 (06:11→21:26)
[2016-09-19 06:32] LABS: BASO % 1 % (0-3); EOS % 2 % (0-3); HEMATOCRIT 34.4 % (36.0-47.0); HEMOGLOBIN 11.9 g/dL (12.0-15.5); LYMPH # 0.7 x10^3/uL (1.0-4.8); LYMPH % 21 % (24-48); MEAN CORPUSCULAR HEMOGLOBIN 31 pg (25-35); MEAN CORPUSCULAR HGB CONC 35 g/dL (31-37); MEAN CORPUSCULAR VOLUME 90 fL (79-100); MONO % 2 % (0-9); NEUT % 75 % (31-73); PLATELET COUNT 120 x10^3/uL (140-400); RED CELL DISTRIBUTION WIDTH 13.7 % (11.5-14.5); WHITE BLOOD COUNT 3.1 x10^3/uL (4.0-11.0)
[2016-09-19 06:50] LABS: CALCIUM 8.1 mg/dL (8.5-10.1); CREATININE 1.5 mg/dL (0.6-1.0); GFR 34.9; MAGNESIUM 0.9 mg/dL (1.8-2.4); PHOSPHORUS 2.5 mg/dL (2.6-4.7); POTASSIUM 3.7 mmol/L (3.5-5.1)
[2016-09-19 07:00] VITALS: BP 188/70
[2016-09-19] MEDS ORDERED: MAGNESIUM SULFATE 4GM 100 ML IV ONE (08:15)
[2016-09-19] MEDS: PANTOPRAZOLE 40 MG TABLET.DR. PO SCH (08:17)
[2016-09-19] MEDS: OMEGA-3 FATTY ACIDS/FISH OIL 1,000 MG CAPSULE. PO SCH ×2 (08:18→21:22)
[2016-09-19] MEDS: ASPIRIN 325 MG TABLET PO SCH (08:18)
[2016-09-19] MEDS: CHOLECALCIFEROL (VITAMIN D3) 1,000 UNIT TABLET PO SCH (08:18)
[2016-09-19] MEDS: amLODIPine BESYLATE 5 MG TABLET PO SCH (08:18)
[2016-09-19] MEDS: ASCORBIC ACID 500 MG TABLET PO SCH (08:19)
[2016-09-19] MEDS: INSULIN ASPART 300 UNITS/3 ML INSULN.PEN SQ SCH ×3 (08:25→17:46)
--- NOTE | 2016-09-19 10:31 | PDOC ---
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 Began combined CDDP based chemo and chest RT 09/09/2016. Admitted with uncontrolled BS from [facility] and rx DXM with acute renal insufficiency with a with Cr 3.1 on admit. Now feeling better overall with improved fatigue. Eating well with no difficulty swallowing. CBC today Hb 11.9 WBC 3.1 Plat 120K Chem lytes ok, Cr continues to improve , now 1.5, BS 263 Impression: Overall improvement. Continue chest radiation as planned. RADHA ACEVES MD September 19, 2016 10:31
[2016-09-19 11:00] VITALS: BP 136/50
--- NOTE | 2016-09-19 12:19 | PDOC ---
Renal-Progress Notes Subjective Notes Notes FEELS WELL History of Present Illness Hx of present illness STABLE Vitals Vitals Vital Signs Date Time Temp Pulse Resp B/P (MAP) Pulse Ox O2 Delivery O2 Flow Rate FiO2 09/19/16 11:00 97.5 73 20 136/50 (78) 96 Room Air 97.5 Weight Weight [ ] I.O. Intake and Output Intake and Output 09/19/16 07:00 Intake Total 1100 ml Balance 1100 ml Intake Oral 1100 ml # Voids 3 # Bowel Movements 1 Labs Labs Laboratory Tests Test 09/18/16 16:42 09/18/16 20:35 09/19/16 06:00 09/19/16 07:40 Glucose (Fingerstick) 249 mg/dL (70-99) 309 mg/dL (70-99) 256 mg/dL (70-99) White Blood Count 3.1 x10^3/uL (4.0-11.0) Red Blood Count 3.80 x10^6/uL (3.50-5.40) Hemoglobin 11.9 g/dL (12.0-15.5) Hematocrit 34.4 % (36.0-47.0) Mean Corpuscular Volume 90 fL (79-100) Mean Corpuscular Hemoglobin 31 pg (25-35) Mean Corpuscular Hemoglobin Concent 35 g/dL (31-37) Red Cell Distribution Width 13.7 % (11.5-14.5) Platelet Count 120 x10^3/uL (140-400) Neutrophils (%) (Auto) 75 % (31-73) Lymphocytes (%) (Auto) 21 % (24-48) Monocytes (%) (Auto) 2 % (0-9) Eosinophils (%) (Auto) 2 % (0-3) Basophils (%) (Auto) 1 % (0-3) Neutrophils # (Auto) 2.3 x10^3uL (1.8-7.7) Lymphocytes # (Auto) 0.7 x10^3/uL (1.0-4.8) Monocytes # (Auto) 0.1 x10^3/uL (0.0-1.1) Eosinophils # (Auto) 0.1 x10^3/uL (0.0-0.7) Basophils # (Auto) 0.0 x10^3/uL (0.0-0.2) Sodium Level 141 mmol/L (136-145) Potassium Level 3.7 mmol/L (3.5-5.1) Chloride Level 104 mmol/L (98-107) Carbon Dioxide Level 26 mmol/L (21-32) Anion Gap 11 (6-14) Blood Urea Nitrogen 39 mg/dL (7-20) Creatinine 1.5 mg/dL (0.6-1.0) Estimated GFR (Cockcroft-Gault) 34.9 Glucose Level 263 mg/dL (70-99) Calcium Level 8.1 mg/dL (8.5-10.1) Phosphorus Level 2.5 mg/dL (2.6-4.7) Magnesium Level 0.9 mg/dL (1.8-2.4) Test 09/19/16 11:46 Glucose (Fingerstick) 321 mg/dL (70-99) Review of Systems Constitutional: yes: alert Ears/Nose/Throat: Yes: no symptom reported Eyes: Yes: no symptom reported Pulmonary: Yes no symptom reported Cardiovascular: Yes no symptom reported Genitourinary: Yes: no symptom reported Skin: Yes no symptom reported Psychiatric/Neurological: Yes: no symptom reported Physical Exam General Appearance: no apparent distress Skin: warm Respiratory: bilateral CTA Heart: S1S2, RRR Abdomen: bowel sounds present Genitourinary: bladder flat Neurology: alert, oriented Assessment Assessment IMP RASHI-NEARLY RESOLVED WITH CR OF 1.5 STAGE 3 LUNG CA-ONGOING CHEMO AND RAD TX PLAN ENC PO STOP IVF'S WILL FOLLOW NEEDED OK TO D/C FROM RENAL STANDPOINT OK TO RESUME METFORMIN PROB RESUME ARB OP NEEDED CEDRIC TRISTAN MD September 19, 2016 12:19
[2016-09-19] MEDS: MAGNESIUM OXIDE 400 MG TABLET PO SCH (12:43)
[2016-09-19] MEDS: GLIMEPIRIDE 2 MG TABLET. PO SCH (13:58)
[2016-09-19] MEDS: PIOGLITAZONE 15 MG TABLET. PO SCH (13:59)
[2016-09-19] MEDS ORDERED: HEPARIN PF 500 UNIT/5 ML DISP.SYRIN. IV ONE (14:00)
--- NOTE | 2016-09-19 14:13 | PDOC ---
PROGRESS NOTES Chief Complaint Chief Complaint 1. RASHI, 2/2 CHEMO meds ATN, and possible dehydration 2. hyperglycemia with steroid and baseline dm2 3. htn 4. obesity 5. recent diagnosed right Lung Ca , stage IIIA [id number] chemo and RT 6. elevated transaminitis plan: RT, onco, Renal consult, cont RT daily ivf dc as per renal hold metformin, losartan, hctz add amlodipine US renal neg dvt, gi ppx labs tmr SSI, check hba1c 8.5 resume home DM meds except metformin. add glimepiride dc tmr History of Present Illness History of Present Illness feels better today Cr 1.5 better low mag Vitals Vitals Vital Signs Date Time Temp Pulse Resp B/P (MAP) Pulse Ox O2 Delivery O2 Flow Rate FiO2 09/19/16 11:00 97.5 73 20 136/50 (78) 96 Room Air 97.5 Physical Exam General: Alert, Oriented X3, Cooperative, No acute distress Heart: Regular rate, Normal S1 Lungs: Clear Abdomen: Normal bowel sounds, Soft, No tenderness Extremities: No clubbing Labs LABS Laboratory Tests Test 09/18/16 16:42 09/18/16 20:35 09/19/16 06:00 09/19/16 07:40 Glucose (Fingerstick) 249 mg/dL (70-99) 309 mg/dL (70-99) 256 mg/dL (70-99) White Blood Count 3.1 x10^3/uL (4.0-11.0) Red Blood Count 3.80 x10^6/uL (3.50-5.40) Hemoglobin 11.9 g/dL (12.0-15.5) Hematocrit 34.4 % (36.0-47.0) Mean Corpuscular Volume 90 fL (79-100) Mean Corpuscular Hemoglobin 31 pg (25-35) Mean Corpuscular Hemoglobin Concent 35 g/dL (31-37) Red Cell Distribution Width 13.7 % (11.5-14.5) Platelet Count 120 x10^3/uL (140-400) Neutrophils (%) (Auto) 75 % (31-73) Lymphocytes (%) (Auto) 21 % (24-48) Monocytes (%) (Auto) 2 % (0-9) Eosinophils (%) (Auto) 2 % (0-3) Basophils (%) (Auto) 1 % (0-3) Neutrophils # (Auto) 2.3 x10^3uL (1.8-7.7) Lymphocytes # (Auto) 0.7 x10^3/uL (1.0-4.8) Monocytes # (Auto) 0.1 x10^3/uL (0.0-1.1) Eosinophils # (Auto) 0.1 x10^3/uL (0.0-0.7) Basophils # (Auto) 0.0 x10^3/uL (0.0-0.2) Sodium Level 141 mmol/L (136-145) Potassium Level 3.7 mmol/L (3.5-5.1) Chloride Level 104 mmol/L (98-107) Carbon Dioxide Level 26 mmol/L (21-32) Anion Gap 11 (6-14) Blood Urea Nitrogen 39 mg/dL (7-20) Creatinine 1.5 mg/dL (0.6-1.0) Estimated GFR (Cockcroft-Gault) 34.9 Glucose Level 263 mg/dL (70-99) Calcium Level 8.1 mg/dL (8.5-10.1) Phosphorus Level 2.5 mg/dL (2.6-4.7) Magnesium Level 0.9 mg/dL (1.8-2.4) Test 09/19/16 11:46 Glucose (Fingerstick) 321 mg/dL (70-99) Review of Systems Review of Systems no fever, chills, sob or chest pain Comment Review of Relevant I have reviewed the following items yuly (where applicable) has been applied. Labs Laboratory Tests Test 09/17/16 15:46 09/17/16 21:31 09/18/16 04:35 09/18/16 08:03 Glucose (Fingerstick) 313 mg/dL (70-99) 203 mg/dL (70-99) 207 mg/dL (70-99) White Blood Count 4.1 x10^3/uL (4.0-11.0) Red Blood Count 3.83 x10^6/uL (3.50-5.40) Hemoglobin 12.1 g/dL (12.0-15.5) Hematocrit 34.4 % (36.0-47.0) Mean Corpuscular Volume 90 fL (79-100) Mean Corpuscular Hemoglobin 32 pg (25-35) Mean Corpuscular Hemoglobin Concent 35 g/dL (31-37) Red Cell Distribution Width 13.2 % (11.5-14.5) Platelet Count 129 x10^3/uL (140-400) Neutrophils (%) (Auto) 80 % (31-73) Lymphocytes (%) (Auto) 16 % (24-48) Monocytes (%) (Auto) 2 % (0-9) Eosinophils (%) (Auto) 1 % (0-3) Basophils (%) (Auto) 1 % (0-3) Neutrophils # (Auto) 3.3 x10^3uL (1.8-7.7) Lymphocytes # (Auto) 0.7 x10^3/uL (1.0-4.8) Monocytes # (Auto) 0.1 x10^3/uL (0.0-1.1) Eosinophils # (Auto) 0.0 x10^3/uL (0.0-0.7) Basophils # (Auto) 0.0 x10^3/uL (0.0-0.2) Sodium Level 139 mmol/L (136-145) Potassium Level 3.7 mmol/L (3.5-5.1) Chloride Level 103 mmol/L (98-107) Carbon Dioxide Level 26 mmol/L (21-32) Anion Gap 10 (6-14) Blood Urea Nitrogen 64 mg/dL (7-20) Creatinine 1.9 mg/dL (0.6-1.0) Estimated GFR (Cockcroft-Gault) 26.5 Glucose Level 210 mg/dL (70-99) Hemoglobin A1c 8.3 % (4.8-5.6) Calcium Level 8.3 mg/dL (8.5-10.1) Test 09/18/16 11:38 09/18/16 11:40 09/18/16 16:42 09/18/16 20:35 Glucose (Fingerstick) 288 mg/dL (70-99) 249 mg/dL (70-99) 309 mg/dL (70-99) Urine Collection Type Unknown Urine Color Yellow Urine Clarity Clear Urine pH 5.5 Urine Specific [place] 1.015 Urine Protein Negative mg/dL (NEG-TRACE) Urine Glucose (UA) >=1000 mg/dL (NEG) Urine Ketones (Stick) Negative mg/dL (NEG) Urine Blood Negative (NEG) Urine Nitrite Negative (NEG) Urine Bilirubin Negative (NEG) Urine Urobilinogen Dipstick 0.2 mg/dL (0.2 mg/dL) Urine Leukocyte Esterase Negative (NEG) Urine RBC Occ /HPF (0-2) Urine WBC 1-4 /HPF (0-4) Urine Squamous Epithelial Cells Few /LPF Urine Bacteria Few /HPF (0-FEW) Test 09/19/16 06:00 09/19/16 07:40 09/19/16 11:46 White Blood Count 3.1 x10^3/uL (4.0-11.0) Red Blood Count 3.80 x10^6/uL (3.50-5.40) Hemoglobin 11.9 g/dL (12.0-15.5) Hematocrit 34.4 % (36.0-47.0) Mean Corpuscular Volume 90 fL (79-100) Mean Corpuscular Hemoglobin 31 pg (25-35) Mean Corpuscular Hemoglobin Concent 35 g/dL (31-37) Red Cell Distribution Width 13.7 % (11.5-14.5) Platelet Count 120 x10^3/uL (140-400) Neutrophils (%) (Auto) 75 % (31-73) Lymphocytes (%) (Auto) 21 % (24-48) Monocytes (%) (Auto) 2 % (0-9) Eosinophils (%) (Auto) 2 % (0-3) Basophils (%) (Auto) 1 % (0-3) Neutrophils # (Auto) 2.3 x10^3uL (1.8-7.7) Lymphocytes # (Auto) 0.7 x10^3/uL (1.0-4.8) Monocytes # (Auto) 0.1 x10^3/uL (0.0-1.1) Eosinophils # (Auto) 0.1 x10^3/uL (0.0-0.7) Basophils # (Auto) 0.0 x10^3/uL (0.0-0.2) Sodium Level 141 mmol/L (136-145) Potassium Level 3.7 mmol/L (3.5-5.1) Chloride Level 104 mmol/L (98-107) Carbon Dioxide Level 26 mmol/L (21-32) Anion Gap 11 (6-14) Blood Urea Nitrogen 39 mg/dL (7-20) Creatinine 1.5 mg/dL (0.6-1.0) Estimated GFR (Cockcroft-Gault) 34.9 Glucose Level 263 mg/dL (70-99) Calcium Level 8.1 mg/dL (8.5-10.1) Phosphorus Level 2.5 mg/dL (2.6-4.7) Magnesium Level 0.9 mg/dL (1.8-2.4) Glucose (Fingerstick) 256 mg/dL (70-99) 321 mg/dL (70-99) Laboratory Tests Test 09/18/16 16:42 09/18/16 20:35 09/19/16 06:00 09/19/16 07:40 Glucose (Fingerstick) 249 mg/dL (70-99) 309 mg/dL (70-99) 256 mg/dL (70-99) White Blood Count 3.1 x10^3/uL (4.0-11.0) Red Blood Count 3.80 x10^6/uL (3.50-5.40) Hemoglobin 11.9 g/dL (12.0-15.5) Hematocrit 34.4 % (36.0-47.0) Mean Corpuscular Volume 90 fL (79-100) Mean Corpuscular Hemoglobin 31 pg (25-35) Mean Corpuscular Hemoglobin Concent 35 g/dL (31-37) Red Cell Distribution Width 13.7 % (11.5-14.5) Platelet Count 120 x10^3/uL (140-400) Neutrophils (%) (Auto) 75 % (31-73) Lymphocytes (%) (Auto) 21 % (24-48) Monocytes (%) (Auto) 2 % (0-9) Eosinophils (%) (Auto) 2 % (0-3) Basophils (%) (Auto) 1 % (0-3) Neutrophils # (Auto) 2.3 x10^3uL (1.8-7.7) Lymphocytes # (Auto) 0.7 x10^3/uL (1.0-4.8) Monocytes # (Auto) 0.1 x10^3/uL (0.0-1.1) Eosinophils # (Auto) 0.1 x10^3/uL (0.0-0.7) Basophils # (Auto) 0.0 x10^3/uL (0.0-0.2) Sodium Level 141 mmol/L (136-145) Potassium Level 3.7 mmol/L (3.5-5.1) Chloride Level 104 mmol/L (98-107) Carbon Dioxide Level 26 mmol/L (21-32) Anion Gap 11 (6-14) Blood Urea Nitrogen 39 mg/dL (7-20) Creatinine 1.5 mg/dL (0.6-1.0) Estimated GFR (Cockcroft-Gault) 34.9 Glucose Level 263 mg/dL (70-99) Calcium Level 8.1 mg/dL (8.5-10.1) Phosphorus Level 2.5 mg/dL (2.6-4.7) Magnesium Level 0.9 mg/dL (1.8-2.4) Test 09/19/16 11:46 Glucose (Fingerstick) 321 mg/dL (70-99) Medications Current Medications Acetaminophen/ Hydrocodone Bitart (Lortab 5/325) 1 tab PRN Q4HRS PRN PO MILD PAIN; Start 09/17/16 at 15:45 Acetaminophen (Tylenol) 650 mg PRN Q6HRS PRN PO Headaches, Temp > 101.5F; Start 09/17/16 at 15:45 Heparin Sodium (Porcine) (Heparin Sq) 5,000 unit Q8HRS SQ Last administered on 09/19/16 14:06; Start 09/17/16 at 22:00 Ondansetron HCl (Zofran) 4 mg PRN Q6HRS PRN IV NAUSEA/VOMITING; Start 09/17/16 at 15:45 Insulin Aspart (NovoLOG) 0-9 UNITS TIDWMEALS SQ Last administered on 09/19/16 12:22; Start 09/17/16 at 17:00 Dextrose (Dextrose 50%-Water Syringe) 12.5 gm PRN Q15MIN PRN IV SEE COMMENTS; Start 09/17/16 at 15:45 Sodium Chloride 1,000 ml @ 100 mls/hr Q10H IV Last administered on 09/19/16 01:39; Start 09/17/16 at 15:45; Stop 09/19/16 at 12:20; Status DC Hydralazine HCl (Apresoline) 10 mg PRN Q4HRS PRN IVP ELEVATED BP, SEE COMMENTS ; Start 09/17/16 at 16:30 Ascorbic Acid (Vitamin C) 500 mg DAILY PO Last administered on 09/19/16 08:19 ; Start 09/18/16 at 09:00 Aspirin ([place] Aspirin) 325 mg DAILYWBKFT PO Last administered on 09/19/16 08: 18; Start 09/18/16 at 08:00 Vitamin D (Vitamin D3) 1,000 unit DAILY PO Last administered on 09/19/16 08:18 ; Start 09/18/16 at 09:00 Fish Oil (Fish Oil) 2,000 mg BID PO Last administered on 09/19/16 08:18; Start 09/17/16 at 21:00 Pantoprazole Sodium (Protonix) 40 mg DAILYAC PO Last administered on 09/19/16 08:17; Start 09/18/16 at 07:30 Amlodipine Besylate (Norvasc) 5 mg DAILY PO Last administered on 09/19/16 08: 18; Start 09/18/16 at 09:00 Influenza Virus Vaccine Quadrival (Fluarix Quad [id number] Syringe) 0.5 ml ONCE ONCE VAX IM ; Start 09/17/16 at 19:15; Stop 09/17/16 at 19:16; Status UNV Pneumococcal Polyvalent Vaccine (Pneumovax 23) 0.5 ml ONCE ONCE VAX IM ; Start 09/18/16 at 09:00; Stop 09/18/16 at 09:01; Status DC Magnesium Sulfate/ Dextrose 100 ml @ 25 mls/hr 1X ONCE IV Last administered on 09/19/16 08:32; Start 09/19/16 at 08:15; Stop 09/19/16 at 12:14; Status DC Magnesium Oxide (Magnesium Oxide) 400 mg DAILY PO Last administered on 12:43; Start 09/19/16 at 12:30 Non-Formulary Medication 0.6 mg DAILY SQ ; Start 09/20/16 at 09:00; Status UNV Pioglitazone HCl (Actos) 45 mg DAILY PO Last administered on 09/19/16 13:59; Start 09/19/16 at 13:00 Glimepiride (Amaryl) 2 mg DAILY PO Last administered on 09/19/16 13:58; Start 09/19/16 at 13:00 Heparin Sodium (Porcine) (Hep Lock Adult) 500 unit 1X ONCE IV Last administered on 09/19/16 14:06; Start 09/19/16 at 14:00; Stop 09/19/16 at 14:01 ; Status DC Active Scripts Active Reported Glucosamine & Chondroitin Cap (Glucosa Kothari 2KCL/Chondroitin Kothari) 1 Each Capsule 1 Each PO DAILY Compazine (Prochlorperazine Maleate) 10 Mg Tablet 10 Mg PO Q6HRS PRN Fish Oil 1,000 Mg Capsule ([place]-3 Fatty Acids/Fish Oil) 1 Each Capsule 2 Each PO BID Vitamin D3 (Cholecalciferol (Vitamin D3)) 1,000 Unit Tablet 1,000 Unit PO DAILY Aspirin 325 Mg Tablet 325 Mg PO DAILY Vitamin C (Ascorbic Acid) 500 Mg Tablet 500 Mg PO DAILY Potassium Citrate 10 Meq Tablet.er 99 Mg PO DAILY Actos (Pioglitazone Hcl) 45 Mg Tablet 45 Mg PO DAILY Prilosec Otc (Omeprazole Magnesium) 20 Mg Tablet.dr 20 Mg PO DAILY Metformin Hcl 1,000 Mg Tablet 1,000 Mg PO BIDWMEALS Victoza 3-Mic (Liraglutide) 0.6 Mg/0.1 Ml Pen.injctr 0.6 Mg SQ DAILY Losartan-Hctz 100-25 Mg Tab (Losartan/Hydrochlorothiazide) 1 Each Tablet 1 Each PO DAILY Vitals/I & O Vital Sign - Last 24 Hours 09/18/16 09/18/16 09/18/16 09/18/16 15:29 19:40 20:20 23:40 Temp 97.7 97.7 98.2 97.7 97.7 98.2 Pulse 77 81 79 Resp 20 18 18 B/P (MAP) 135/50 (78) 172/68 (102) 98/45 (62) Pulse Ox 95 98 97 O2 Delivery Room Air Room Air Room Air Room Air 09/19/16 09/19/16 09/19/16 09/19/16 03:35 07:00 08:00 08:18 Temp 97.9 97.9 97.9 97.9 Pulse 80 77 77 Resp 20 18 B/P (MAP) 138/69 (92) 188/70 (109) 162/65 Pulse Ox 96 96 O2 Delivery Room Air Room Air Room Air 09/19/16 11:00 Temp 97.5 97.5 Pulse 73 Resp 20 B/P (MAP) 136/50 (78) Pulse Ox 96 O2 Delivery Room Air Intake and Output 09/18/16 09/18/16 09/19/16 15:00 23:00 07:00 Intake Total 900 ml 200 ml Balance 900 ml 200 ml IVAN AYALA MD September 19, 2016 14:12
[2016-09-19 15:00] VITALS: BP 162/53
[2016-09-19 19:57] VITALS: BP 151/68
[2016-09-19 23:22] VITALS: BP 150/56
[2016-09-20 06:07] LABS: CALCIUM 8.8 mg/dL (8.5-10.1); CREATININE 1.4 mg/dL (0.6-1.0); GFR 37.7
[2016-09-20] MEDS: HEPARIN PF for SUB-Q USE 5,000 UNIT/0.5 ML VIAL. SQ SCH ×2 (06:29→13:10)
[2016-09-20 07:00] VITALS: BP 147/68
[2016-09-20] MEDS: PANTOPRAZOLE 40 MG TABLET.DR. PO SCH (07:34)
[2016-09-20] MEDS: MAGNESIUM OXIDE 400 MG TABLET PO SCH (08:29)
[2016-09-20] MEDS: GLIMEPIRIDE 2 MG TABLET. PO SCH (08:29)
[2016-09-20] MEDS: ASPIRIN 325 MG TABLET PO SCH (08:29)
[2016-09-20] MEDS: PIOGLITAZONE 15 MG TABLET. PO SCH (08:29)
[2016-09-20] MEDS: ASCORBIC ACID 500 MG TABLET PO SCH (08:30)
[2016-09-20] MEDS: amLODIPine BESYLATE 5 MG TABLET PO SCH (08:30)
[2016-09-20] MEDS: OMEGA-3 FATTY ACIDS/FISH OIL 1,000 MG CAPSULE. PO SCH (08:30)
[2016-09-20] MEDS: CHOLECALCIFEROL (VITAMIN D3) 1,000 UNIT TABLET PO SCH (08:30)
[2016-09-20] MEDS: INSULIN ASPART 300 UNITS/3 ML INSULN.PEN SQ SCH ×2 (08:34→11:42)
[2016-09-20] MEDS ORDERED: NON FORMULARY ITEM (Liraglutide (Victoza 3-Pak) 0.6 MG) SQ SCH (09:00)
--- NOTE | 2016-09-20 09:05 | PDOC ---
Provider Note Provider Note Feeling the same. Overall better since admit. Interested in working this weekend. Anticipating dc today. 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 On ongoing radiation. Chemo to resume soon when cleared by Dr Mitchell with anticipated dose reduction. DM with uncontrolled BS and acute renal failure. Overall better. Dr Luther does anticipate ongoing improvement of renal function back to normal level of Cr. Discussed with patient. RADHA ACEVES MD September 20, 2016 09:05
[2016-09-20 11:00] VITALS: BP 139/59
[2016-09-20] MEDS ORDERED: MAGNESIUM SULFATE 2GM 50 ML IV ONE (11:00)
[2016-09-20] MEDS ORDERED: GLIM2TAB PO (11:27)
[2016-09-20] MEDS ORDERED: MAGN400T22 PO (11:27)
[2016-09-20] MEDS ORDERED: LOSA50TA2 PO (11:27)
[2016-09-20 11:40] VITALS: BP 139/59
--- NOTE | 2016-09-20 11:49 | PDOC ---
Renal-Progress Notes Subjective Notes Notes FEELS WELL History of Present Illness Hx of present illness BETTER Vitals Vitals Vital Signs Date Time Temp Pulse Resp B/P (MAP) Pulse Ox O2 Delivery O2 Flow Rate FiO2 09/20/16 11:40 73 139/59 09/20/16 11:00 97.9 20 95 Room Air 97.9 Weight Weight [ ] I.O. Intake and Output Intake and Output 09/20/16 06:59 Intake Total 800 ml Balance 800 ml Intake Oral 800 ml # Voids 6 Labs Labs Laboratory Tests Test 09/19/16 16:50 09/19/16 21:30 09/20/16 05:38 09/20/16 07:40 Glucose (Fingerstick) 266 mg/dL (70-99) 192 mg/dL (70-99) 263 mg/dL (70-99) Sodium Level 139 mmol/L (136-145) Potassium Level 4.0 mmol/L (3.5-5.1) Chloride Level 102 mmol/L (98-107) Carbon Dioxide Level 28 mmol/L (21-32) Anion Gap 9 (6-14) Blood Urea Nitrogen 30 mg/dL (7-20) Creatinine 1.4 mg/dL (0.6-1.0) Estimated GFR (Cockcroft-Gault) 37.7 Glucose Level 205 mg/dL (70-99) Calcium Level 8.8 mg/dL (8.5-10.1) Magnesium Level 1.7 mg/dL (1.8-2.4) Test 09/20/16 11:24 Glucose (Fingerstick) 323 mg/dL (70-99) Review of Systems Constitutional: yes: alert Ears/Nose/Throat: Yes: no symptom reported Eyes: Yes: no symptom reported Pulmonary: Yes no symptom reported Cardiovascular: Yes no symptom reported Genitourinary: Yes: no symptom reported Skin: Yes no symptom reported Psychiatric/Neurological: Yes: no symptom reported Physical Exam General Appearance: no apparent distress Skin: warm Respiratory: bilateral CTA Heart: S1S2, RRR Abdomen: bowel sounds present Genitourinary: bladder flat Neurology: alert, oriented Assessment Assessment IMP RASHI-NEARLY RESOLVED WITH CR OF 1.4 STAGE 3 LUNG CA-ONGOING CHEMO AND RAD TX PLAN ENC PO OFF IVF'S WILL FOLLOW NEEDED OK TO D/C FROM RENAL STANDPOINT OK TO RESUME METFORMIN PROB RESUME ARB OP NEEDED CEDRIC TRISTAN MD September 20, 2016 11:49
[2016-09-20] MEDS ORDERED: LOSARTAN POTASSIUM 50 MG TABLET. PO SCH (12:00)
--- NOTE | 2016-09-20 12:45 | PDOC3 ---
Discharge Summary [facility] Date of Admission: September 17, 2016 Discharge Date: September 20, 2016 Admitting Diagnosis 1. RASHI, 2/2 CHEMO meds ATN, and possible dehydration 2. hyperglycemia with steroid and baseline uncontrolled dm2 3. htn 4. obesity 5. recent diagnosed right Lung Ca , stage IIIA [id number] chemo and RT 6. elevated transaminitis Problems: CONSULTS renal rt onco Brief Hospital Course 65 F, who was recently diagnosed with stage 3 right lung Ca , on RT and chemo with dr. Mitchell for1 week so far, was sent by dr. Mitchell from the office for RASHI. Pt had mild chest pain when diagnosed with lung Ca, no cough or sob. + recent weight loss. now mild cough with RT daily. She takes metformin 1000mg bid for DM usually, got decadron iv x1 on chemo last Fri, then po bid x3 times, felt sick, hyperglycemia and took extra 2 pills of metformin on Sat, polyuria. She went to check labs on Friday, was found Cr higher and today was >3, which is new to her and then sent there. Glucose >300. pt's Cr improved a lot with IVF to 1.4 now, no baseline Cr known. Metformin held , however, hba1c 8.7, meaning DM2 was not controlled well for 3 months. add glimepiride. resume losartan only for outpt. ask her to fu next week, repeat bmp to see if can add metformin back, cont viczota, actose. dc hctz. dc time 35min General: Alert, Oriented X3, Cooperative, No acute distress Heart: Regular rate, Normal S1 Lungs: Clear Abdomen: Normal bowel sounds, Soft, No tenderness Extremities: No clubbing Problems: Disposition home CONDITION AT DISCHARGE: Improved Diet ada Scheduled Ascorbic Acid (Vitamin C), 500 MG PO DAILY, (Reported) Aspirin (Aspirin), 325 MG PO DAILY, (Reported) Cholecalciferol (Vitamin D3) (Vitamin D3), 1,000 UNIT PO DAILY, (Reported) Glimepiride (Amaryl), 2 MG PO DAILY Glucosa Kothari 2KCL/Chondroitin Kothari (Glucosamine & Chondroitin Cap), 1 EACH PO DAILY, (Reported) Liraglutide (Victoza 3-Mic), 0.6 MG SQ DAILY, (Reported) Losartan Potassium (Cozaar), 100 MG PO DAILY Magnesium Oxide (Mag-Oxide), 400 MG PO DAILY [place]-3 Fatty Acids/Fish Oil (Fish Oil 1,000 Mg Capsule), 2 EACH PO BID, ( Reported) Omeprazole Magnesium (Prilosec Otc), 20 MG PO DAILY, (Reported) Pioglitazone Hcl (Actos), 45 MG PO DAILY, (Reported) Scheduled PRN Prochlorperazine Maleate (Compazine), 10 MG PO Q6HRS PRN for NAUSEA/VOMITING, ( Reported) Discontinued Medications Losartan/Hydrochlorothiazide (Losartan-Hctz 100-25 Mg Tab), 1 EACH PO DAILY, ( Reported) Metformin Hcl (Metformin Hcl), 1,000 MG PO BIDWMEALS, (Reported) Potassium Citrate (Potassium Citrate), 99 MG PO DAILY, (Reported) Follow Up renal, onco in 1 week IVAN AYALA MD September 20, 2016 12:45
[2016-09-20] MEDS ORDERED: HEPARIN PF 500 UNIT/5 ML DISP.SYRIN. IV ONE (13:15)
== END 2016-09-20 14:38 | disposition home or self-care (01) | DRG 683 ==
LOC: 6 SOUTH 14:09
PROVIDERS: ADMIT Internal Medicine; ATTEND Internal Medicine
DX: N17.0 Acute kidney failure with tubular necrosis (principal); C34.11 Malignant neoplasm of upper lobe, right bronchus or lung; C38.3 Malignant neoplasm of mediastinum, part unspecified; E11.65 Type 2 diabetes mellitus with hyperglycemia; E66.9 Obesity, unspecified; E86.0 Dehydration; I10 Essential (primary) hypertension; Z79.84 Long term (current) use of oral hypoglycemic drugs; Z82.3 Family history of stroke; Z82.49 Family history of ischemic heart disease and other diseases of the circulatory system; Z83.3 Family history of diabetes mellitus; Z85.118 Personal history of other malignant neoplasm of bronchus and lung; Z86.73 Personal history of transient ischemic attack (TIA), and cerebral infarction without residual deficits; Z87.891 Personal history of nicotine dependence; Z92.21 Personal history of antineoplastic chemotherapy; M19.90 Unspecified osteoarthritis, unspecified site
CPT/HCPCS: 36415; 76770; 77336; 77412; 80048; 81001; 82947; 83036; 83735; 84100; 85027; 90732; J1815; J3475; J7030; J7060

== ENCOUNTER → 2016-09-17 | Outpatient (CLI) | payer BC, MEDICARE ==
[~2016-09-17] MED LIST changes: -ASPI325T4 PO; +ASPI325T8 PO; +GLIM2TAB PO; +GLIM4TAB PO; +HYDR-2758 PO; +IV NORMAL SALINE 1000ML BAG 1,000 ML IV SCH; +LOSA50TA2 PO; +MAGN400T22 PO; -PIOG45TA19 PO; +PIOG45TA40 PO
[2016-09-17 11:44] LABS: CALCIUM 8.6 mg/dL (8.5-10.1); CREATININE 3.1 mg/dL (0.6-1.0); GFR 15.1; POTASSIUM 4.1 mmol/L (3.5-5.1)
[2016-09-17 11:50] LABS: ALBUMIN 3.4 g/dL (3.4-5.0); ALBUMIN/GLOBULIN RATIO 0.8 (1.0-1.7); TOTAL BILIRUBIN 0.5 mg/dL (0.2-1.0); TOTAL PROTEIN 7.6 g/dL (6.4-8.2)
[2016-09-17] MEDS: IV NORMAL SALINE 1000ML BAG 1,000 ML IV SCH ×2 (13:10→14:26)
== END ==
LOC: OPS 11:11
PROVIDERS: ATTEND Internal Medicine Hematology & Oncology
DX: C34.11 Malignant neoplasm of upper lobe, right bronchus or lung (principal); E78.00 Pure hypercholesterolemia, unspecified; I10 Essential (primary) hypertension; K21.9 Gastro-esophageal reflux disease without esophagitis; M19.90 Unspecified osteoarthritis, unspecified site; E11.9 Type 2 diabetes mellitus without complications; D50.9 Iron deficiency anemia, unspecified; Z86.010 Personal history of colon polyps; Z87.891 Personal history of nicotine dependence; Z86.73 Personal history of transient ischemic attack (TIA), and cerebral infarction without residual deficits
CPT/HCPCS: 36415; 80053; 96360; 96361; J7030; 96365; 96366

== ENCOUNTER → 2016-09-25 | Outpatient (CLI) | payer BC, MEDICARE ==
[2016-09-18 03:00] VITALS: BP 160/49
[~2016-09-25] MED LIST changes: +GLIM2TAB PO; +LOSA50TA2 PO; +MAGN400T22 PO
[2016-09-25 10:36] LABS: BASO % 1 % (0-3); EOS % 1 % (0-3); HEMATOCRIT 34.7 % (36.0-47.0); HEMOGLOBIN 12.1 g/dL (12.0-15.5); LYMPH # 0.6 x10^3/uL (1.0-4.8); LYMPH % 52 % (24-48); MEAN CORPUSCULAR HEMOGLOBIN 32 pg (25-35); MEAN CORPUSCULAR HGB CONC 35 g/dL (31-37); MEAN CORPUSCULAR VOLUME 91 fL (79-100); MONO % 32 % (0-9); NEUT % 14 % (31-73); PLATELET COUNT 269 x10^3/uL (140-400); RED BLOOD COUNT 3.79 x10^6/uL (3.50-5.40); RED CELL DISTRIBUTION WIDTH 13.8 % (11.5-14.5)
[2016-09-25 10:47] LABS: WHITE BLOOD COUNT 1.2 x10^3/uL (4.0-11.0)
[2016-09-25 11:09] LABS: ALBUMIN 3.1 g/dL (3.4-5.0); ALBUMIN/GLOBULIN RATIO 0.7 (1.0-1.7); CALCIUM 9.5 mg/dL (8.5-10.1); CREATININE 1.5 mg/dL (0.6-1.0); GFR 34.9; POTASSIUM 5.1 mmol/L (3.5-5.1); TOTAL BILIRUBIN 0.3 mg/dL (0.2-1.0); TOTAL PROTEIN 7.5 g/dL (6.4-8.2)
[2016-09-25 13:13] LABS: PLT ESTIMATE ADEQUATE (ADEQUATE)
== END | disposition home or self-care (01) ==
LOC: LAB 10:10
PROVIDERS: ATTEND Internal Medicine Hematology & Oncology
DX: C34.11 Malignant neoplasm of upper lobe, right bronchus or lung (principal)
CPT/HCPCS: 36415; 80053; 83735; 85007; 85027

== ENCOUNTER → 2016-09-30 | Outpatient (CLI) | payer BC ==
[2016-09-18 03:00] VITALS: BP 160/49
[2016-09-30 09:53] LABS: BASO % 1 % (0-3); EOS % 0 % (0-3); HEMATOCRIT 37.8 % (36.0-47.0); HEMOGLOBIN 12.9 g/dL (12.0-15.5); LYMPH # 0.8 x10^3/uL (1.0-4.8); LYMPH % 22 % (24-48); MEAN CORPUSCULAR HEMOGLOBIN 31 pg (25-35); MEAN CORPUSCULAR HGB CONC 34 g/dL (31-37); MEAN CORPUSCULAR VOLUME 92 fL (79-100); MONO % 18 % (0-9); NEUT % 59 % (31-73); PLATELET COUNT 406 x10^3/uL (140-400); RED BLOOD COUNT 4.12 x10^6/uL (3.50-5.40); RED CELL DISTRIBUTION WIDTH 14.2 % (11.5-14.5); WHITE BLOOD COUNT 3.4 x10^3/uL (4.0-11.0)
[2016-09-30 10:15] LABS: ALBUMIN 3.3 g/dL (3.4-5.0); ALBUMIN/GLOBULIN RATIO 0.7 (1.0-1.7); CALCIUM 9.8 mg/dL (8.5-10.1); CREATININE 1.3 mg/dL (0.6-1.0); GFR 41.1; POTASSIUM 4.7 mmol/L (3.5-5.1); TOTAL BILIRUBIN 0.3 mg/dL (0.2-1.0)
[2016-09-30 11:25] LABS: % BASOS 1 % (0-3)
[2016-09-30 11:26] LABS: PLT ESTIMATE INCREASED (ADEQUATE); POLYCHROMASIA PRESENT
== END | disposition home or self-care (01) ==
LOC: LAB 09:30
PROVIDERS: ATTEND Internal Medicine Hematology & Oncology
DX: C34.11 Malignant neoplasm of upper lobe, right bronchus or lung (principal)
CPT/HCPCS: 36415; 80053; 85007; 85027

== ENCOUNTER → 2016-10-07 | Outpatient (CLI) | payer BC ==
[2016-09-18 03:00] VITALS: BP 160/49
[~2016-10-07] MED LIST changes: -ASPI325T4 PO; +ASPI325T8 PO; -PIOG45TA19 PO; +PIOG45TA40 PO
[2016-10-07 11:20] LABS: BASO # 0.1 x10^3/uL (0.0-0.2); BASO % 2 % (0-3); EOS % 0 % (0-3); HEMATOCRIT 34.9 % (36.0-47.0); HEMOGLOBIN 11.9 g/dL (12.0-15.5); LYMPH # 0.7 x10^3/uL (1.0-4.8); LYMPH % 18 % (24-48); MEAN CORPUSCULAR HEMOGLOBIN 31 pg (25-35); MEAN CORPUSCULAR HGB CONC 34 g/dL (31-37); MEAN CORPUSCULAR VOLUME 91 fL (79-100); MONO % 8 % (0-9); NEUT % 73 % (31-73); PLATELET COUNT 212 x10^3/uL (140-400); RED BLOOD COUNT 3.82 x10^6/uL (3.50-5.40); RED CELL DISTRIBUTION WIDTH 14.2 % (11.5-14.5); WHITE BLOOD COUNT 4.2 x10^3/uL (4.0-11.0)
[2016-10-07 11:24] LABS: ALBUMIN 3.5 g/dL (3.4-5.0); ALBUMIN/GLOBULIN RATIO 0.8 (1.0-1.7); CALCIUM 8.9 mg/dL (8.5-10.1); CREATININE 1.3 mg/dL (0.6-1.0); GFR 41.1; POTASSIUM 3.9 mmol/L (3.5-5.1); TOTAL BILIRUBIN 0.4 mg/dL (0.2-1.0); TOTAL PROTEIN 7.8 g/dL (6.4-8.2)
== END | disposition home or self-care (01) ==
LOC: LAB 10:43
PROVIDERS: ATTEND Internal Medicine Hematology & Oncology
DX: C34.11 Malignant neoplasm of upper lobe, right bronchus or lung (principal)
CPT/HCPCS: 36415; 80053; 85027

== ENCOUNTER → 2016-10-14 | Outpatient (CLI) | payer BC ==
[2016-10-09 10:17] VITALS: BP 135/68
[2016-10-14 11:51] LABS: ALBUMIN 3.5 g/dL (3.4-5.0); ALBUMIN/GLOBULIN RATIO 0.9 (1.0-1.7); CALCIUM 9.1 mg/dL (8.5-10.1); CREATININE 1.2 mg/dL (0.6-1.0); GFR 45.1; POTASSIUM 4.3 mmol/L (3.5-5.1); TOTAL BILIRUBIN 0.5 mg/dL (0.2-1.0); TOTAL PROTEIN 7.4 g/dL (6.4-8.2)
[2016-10-14 12:17] LABS: BASO # 0.1 x10^3/uL (0.0-0.2); BASO % 1 % (0-3); EOS % 2 % (0-3); HEMATOCRIT 33.5 % (36.0-47.0); HEMOGLOBIN 11.8 g/dL (12.0-15.5); LYMPH # 0.7 x10^3/uL (1.0-4.8); LYMPH % 16 % (24-48); MEAN CORPUSCULAR HEMOGLOBIN 32 pg (25-35); MEAN CORPUSCULAR HGB CONC 35 g/dL (31-37); MEAN CORPUSCULAR VOLUME 90 fL (79-100); MONO % 5 % (0-9); NEUT % 77 % (31-73); PLATELET COUNT 140 x10^3/uL (140-400); RED BLOOD COUNT 3.73 x10^6/uL (3.50-5.40); RED CELL DISTRIBUTION WIDTH 14.5 % (11.5-14.5); WHITE BLOOD COUNT 4.6 x10^3/uL (4.0-11.0)
[2016-10-14 13:09] LABS: PLT ESTIMATE ADEQUATE (ADEQUATE)
== END | disposition home or self-care (01) ==
LOC: LAB 11:04
PROVIDERS: ATTEND Internal Medicine Hematology & Oncology
DX: C34.11 Malignant neoplasm of upper lobe, right bronchus or lung (principal)
CPT/HCPCS: 36415; 80053; 85007; 85027

== ENCOUNTER → 2016-10-21 | Outpatient (CLI) | payer BC ==
[2016-10-09 10:17] VITALS: BP 135/68
[~2016-10-21] MED LIST changes: +GLIM4TAB PO; +HYDR-2758 PO
[2016-10-21 11:28] LABS: BASO # 0.1 x10^3/uL (0.0-0.2); BASO % 4 % (0-3); EOS % 5 % (0-3); HEMOGLOBIN 11.4 g/dL (12.0-15.5); LYMPH # 0.4 x10^3/uL (1.0-4.8); LYMPH % 22 % (24-48); MEAN CORPUSCULAR HEMOGLOBIN 32 pg (25-35); MEAN CORPUSCULAR HGB CONC 34 g/dL (31-37); MEAN CORPUSCULAR VOLUME 93 fL (79-100); MONO % 8 % (0-9); NEUT % 61 % (31-73); PLATELET COUNT 207 x10^3/uL (140-400); RED BLOOD COUNT 3.54 x10^6/uL (3.50-5.40); RED CELL DISTRIBUTION WIDTH 15.1 % (11.5-14.5)
[2016-10-21 11:42] LABS: WHITE BLOOD COUNT 1.9 x10^3/uL (4.0-11.0)
[2016-10-21 12:59] LABS: % BASOS 7 % (0-3); % EOS 1 % (0-5); PLT ESTIMATE ADEQUATE (ADEQUATE)
== END | disposition home or self-care (01) ==
LOC: LAB 11:01
PROVIDERS: ATTEND Internal Medicine Hematology & Oncology
DX: C34.11 Malignant neoplasm of upper lobe, right bronchus or lung (principal)
CPT/HCPCS: 36415; 85007; 85027

== ENCOUNTER → 2016-10-22 | Outpatient (CLI) | payer BC ==
[2016-10-09 10:17] VITALS: BP 135/68
[2016-10-22 10:57] LABS: BILIRUBIN,URINE NEGATIVE (NEG); GLUCOSE,URINE NEGATIVE (NEG); NITRITE,URINE NEGATIVE (NEG); PH,URINE 5.5; PROTEIN,URINE NEGATIVE (NEG-TRACE); UROBILINOGEN,URINE 0.2 mg/dL (0.2 mg/dL)
[2016-10-22 11:12] LABS: BACTERIA,URINE FEW /HPF (0-FEW); RBC,URINE 0 /HPF (0-2); SQUAMOUS EPITHELIAL CELL,UR MOD /LPF
[2016-10-22 11:14] LABS: ALBUMIN 3.4 g/dL (3.4-5.0); ALBUMIN/GLOBULIN RATIO 0.9 (1.0-1.7); CALCIUM 9.2 mg/dL (8.5-10.1); CREATININE 1.2 mg/dL (0.6-1.0); GFR 45.1; TOTAL BILIRUBIN 0.4 mg/dL (0.2-1.0); TOTAL PROTEIN 7.4 g/dL (6.4-8.2)
== END | disposition home or self-care (01) ==
LOC: LAB 10:34
PROVIDERS: ATTEND Internal Medicine Hematology & Oncology
DX: C34.2 Malignant neoplasm of middle lobe, bronchus or lung (principal); R74.0 Nonspecific elevation of levels of transaminase and lactic acid dehydrogenase [LDH]; R30.0 Dysuria
CPT/HCPCS: 36415; 80053; 81001; 87086

== ENCOUNTER → 2017-01-23 | Outpatient (CLI) | payer BC, MEDICARE ==
[2016-10-24 10:25] VITALS: BP 163/77
[~2017-01-23] MED LIST changes: +CONTRAST GIVEN MC PRN; +IOHEXOL 240 MG/ML 50ML VIAL. PO ONE; +IOHEXOL 300 MG/ML 75 ML VIAL IV ONE
--- NOTE | 2017-01-23 09:52 | RAD ---
Examination: CT chest abdomen with IV contrast History: History of squamous cell lung cancer, stage III, follow-up Comparison: CT from 06/28/2016 Technique: Axial CT images of the chest abdomen were performed with IV contrast. Oral contrast was used for CT of the abdomen pelvis. Correlate for history of possible performed PQRS Compliance Statement: One or more of the following individualized dose reduction techniques were utilized for this examination: 1. Automated exposure control 2. Adjustment of the mA and/or kV according to patient size 3. Use of iterative reconstruction technique Findings: The visualized thyroid gland grossly appears unremarkable. The heart size grossly appears unremarkable. Coronary artery calcifications identified. Interval decrease in size of the mediastinal lymph nodes now measuring 9 mm in the pretracheal region compared to the prior exam where it measured 2.2 cm. There is a residual opacity measuring 1.6 cm identified in the right upper lobe at the site of prior large mass in the right upper lobe (where it measured 3.7 cm) likely residual mass or scarring. There are confluent foci of round glass airspace opacities identified in the right upper lobe, right middle lobe and right lower lobe of the lung could be atelectasis or infiltrate or radiation changes. No evidence of pleural effusion or pneumothorax. No evidence of free air identified in the visualized abdomen. The visualized liver, spleen, adrenals grossly appears unremarkable. The gallbladder is mildly distended. The stomach is mildly distended. The visualized pancreas grossly appears unremarkable. The small bowel is nondilated. Prior surgical changes identified in the right colon. Feces and gas noted in the partially visualized colon. Severe aortic atherosclerosis The bilateral kidneys enhance symmetrically. Mild degenerative changes of the lumbar spine. Old left fifth and sixth rib fractures or surgical changes Impression: 1. Interval significant decrease in size of the right upper lobe lung mass now demonstrating a 1.6 opacity at the site of prior right upper lobe mass could be residual mass or scarring changes. There are multiple confluent foci of airspace opacities identified in the right upper lobe, right middle lobe and right lower lobe of the lung could be posttherapeutic changes or atelectasis or infiltrate. Follow-up to resolution. 2. Interval decrease in size of the mediastinal lymph nodes now demonstrating subcentimeter size.
== END | disposition home or self-care (01) ==
LOC: CT 08:00
PROVIDERS: ATTEND Radiology Radiation Oncology
DX: C34.91 Malignant neoplasm of unspecified part of right bronchus or lung (principal); I10 Essential (primary) hypertension; E11.9 Type 2 diabetes mellitus without complications; Z85.118 Personal history of other malignant neoplasm of bronchus and lung
CPT/HCPCS: 71260; 74160; Q9966; Q9967

== ENCOUNTER → 2017-04-24 | Outpatient (CLI) | payer BC ==
[2017-04-24 07:35] LABS: ADD MAN DIFF? NO
[2017-04-24 07:43] LABS: BASO # 0.1 x10^3/uL (0.0-0.2); BASO % 1 % (0-3); EOS % 6 % (0-3); HEMATOCRIT 35.9 % (36.0-47.0); HEMOGLOBIN 11.9 g/dL (12.0-15.5); LYMPH % 15 % (24-48); MEAN CORPUSCULAR HEMOGLOBIN 30 pg (25-35); MEAN CORPUSCULAR HGB CONC 33 g/dL (31-37); MEAN CORPUSCULAR VOLUME 92 fL (79-100); MONO % 6 % (0-9); NEUT % 72 % (31-73); PLATELET COUNT 290 x10^3/uL (140-400); RED CELL DISTRIBUTION WIDTH 16.7 % (11.5-14.5); WHITE BLOOD COUNT 6.4 x10^3/uL (4.0-11.0)
[2017-04-24 08:18] LABS: ALBUMIN 3.3 g/dL (3.4-5.0); ALBUMIN/GLOBULIN RATIO 0.7 (1.0-1.7); ALK PHOS 106 U/L (46-116); ALT (SGPT) 37 U/L (14-59); ANION GAP 11 (6-14); AST (SGOT) 38 U/L (15-37); BLOOD UREA NITROGEN 14 mg/dL (7-20); BUN/CREATININE RATIO 12 (6-20); CALCIUM 9.1 mg/dL (8.5-10.1); CARBON DIOXIDE 27 mmol/L (21-32); CHLORIDE 104 mmol/L (98-107); CREATININE 1.2 mg/dL (0.6-1.0); GFR 44.9; GLUCOSE 270 mg/dL (70-99); SODIUM 142 mmol/L (136-145); TOTAL BILIRUBIN 0.3 mg/dL (0.2-1.0); TOTAL PROTEIN 7.8 g/dL (6.4-8.2)
[2017-04-24] MEDS: IOHEXOL 300 MG/ML 100ML VIAL. IV (08:27)
== END | disposition home or self-care (01) ==
LOC: CT 07:18
DX: J98.11 Atelectasis (principal); C34.90 Malignant neoplasm of unspecified part of unspecified bronchus or lung
CPT/HCPCS: 36415; 71260; 80053; 85025; Q9967

== ENCOUNTER → 2017-07-31 | Outpatient (CLI) | payer OTHER, BC ==
[2017-07-31 08:49] LABS: CREATININE 1.3 mg/dL (0.6-1.0)
== END | disposition home or self-care (01) ==
LOC: CT 08:01
DX: C34.11 Malignant neoplasm of upper lobe, right bronchus or lung (principal); I10 Essential (primary) hypertension; E11.9 Type 2 diabetes mellitus without complications
CPT/HCPCS: 36415; 82565

== ENCOUNTER → 2017-08-04 | Outpatient (CLI) | payer OTHER ==
[~2017-08-04] MED LIST changes: -ASCO500T2 PO; -ASPI325T8 PO; -CHOL10003 PO; -CONTRAST GIVEN MC PRN; -GLIM2TAB PO; -GLIM4TAB PO; -GLUC1CAP41 PO; -HYDR-2758 PO; -IOHEXOL 240 MG/ML 50ML VIAL. PO ONE; +IOHEXOL 300 MG/ML 100ML VIAL. IV; -IOHEXOL 300 MG/ML 75 ML VIAL IV ONE; -LIRA0.6P2 SQ; -LOSA1TAB17 PO; -LOSA50TA2 PO; -MAGN400T22 PO; -METF-620 PO; -OMEG1CAP6 PO; -OMEP20TA63 PO; -PIOG45TA40 PO; -POTA10TA17 PO; -PROC10TA57 PO; +SODIUM BICARBONATE VIAL 150 MEQ in IV STERILE WATER 1,000 ML IV
[2017-08-04] MEDS: SODIUM BICARBONATE VIAL 150 MEQ in IV STERILE WATER 1,000 ML IV (07:50)
== END | disposition home or self-care (01) ==
LOC: CT 07:18
DX: J98.11 Atelectasis (principal); I25.10 Atherosclerotic heart disease of native coronary artery without angina pectoris; I10 Essential (primary) hypertension; E11.9 Type 2 diabetes mellitus without complications; R56.9 Unspecified convulsions; Z85.118 Personal history of other malignant neoplasm of bronchus and lung
CPT/HCPCS: 71260; Q9967

== ENCOUNTER → 2017-11-27 | Outpatient (CLI) | payer OTHER ==
[2017-11-27 07:53] LABS: CREATININE 1.5 mg/dL (0.6-1.0)
[2017-11-27 07:53] LABS: GFR 34.6
== END | disposition home or self-care (01) ==
LOC: CT 06:49
DX: Z98.890 Other specified postprocedural states (principal); I25.10 Atherosclerotic heart disease of native coronary artery without angina pectoris; I10 Essential (primary) hypertension; E11.9 Type 2 diabetes mellitus without complications; K21.9 Gastro-esophageal reflux disease without esophagitis; E78.00 Pure hypercholesterolemia, unspecified; Z85.118 Personal history of other malignant neoplasm of bronchus and lung; Z86.73 Personal history of transient ischemic attack (TIA), and cerebral infarction without residual deficits; Z86.010 Personal history of colon polyps; Z86.2 Personal history of diseases of the blood and blood-forming organs and certain disorders involving the immune mechanism; Z82.49 Family history of ischemic heart disease and other diseases of the circulatory system
CPT/HCPCS: 36415; 82565

== ENCOUNTER 2017-12-02 06:49 | Outpatient (CLI) | payer OTHER ==
[2017-12-02] MEDS: SODIUM BICARBONATE VIAL 150 MEQ in IV STERILE WATER 1,000 ML IV (07:45)
[2017-12-02] MEDS ORDERED: CONTRAST GIVEN. MC (09:30)
[2017-12-02] MEDS: IOHEXOL 300 MG/ML 100ML VIAL. IV (09:39)
== END 2017-12-02 12:30 | disposition home or self-care (01) ==
LOC: CT 06:49
DX: J98.11 Atelectasis (principal); I25.10 Atherosclerotic heart disease of native coronary artery without angina pectoris; J47.9 Bronchiectasis, uncomplicated; I10 Essential (primary) hypertension; E11.9 Type 2 diabetes mellitus without complications; Z85.118 Personal history of other malignant neoplasm of bronchus and lung
CPT/HCPCS: 71260; Q9967

== ENCOUNTER 2018-03-24 07:40 | Outpatient (CLI) | payer OTHER ==
[~2018-03-24] VITALS: Ht 170.2 cm; Wt 93.9 kg
[~2018-03-24 07:40] MED LIST changes: +ASCO500T2 PO; +ASPI325T8 PO; +CHOL10003 PO; +DULA1.5P SQ; +GLIM2TAB PO; +GLIM2TAB2 PO; +GLIM4TAB PO; +GLUC1CAP41 PO; +HYDR-2761 PO; -IOHEXOL 300 MG/ML 100ML VIAL. IV; +LIRA0.6P2 SQ; +LOSA1TAB22 PO; +LOSA50TA2 PO; +MAGN400T22 PO; +METF10007 PO; +OMEG1CAP6 PO; +OMEP20TA63 PO; +PIOG45TA40 PO; +POTA10TA17 PO; +PROC10TA57 PO; -SODIUM BICARBONATE VIAL 150 MEQ in IV STERILE WATER 1,000 ML IV
[2018-03-24] MEDS ORDERED: SODIUM BICARBONATE VIAL 150 MEQ in IV STERILE WATER 1,000 ML IV SCH (07:45)
[2018-03-24 07:57] VITALS: BP 169/72
[2018-03-24] MEDS ORDERED: IOHEXOL 300 MG/ML 100ML VIAL. IV ONE (08:45)
[2018-03-24] MEDS ORDERED: CONTRAST GIVEN. MC PRN (09:00)
--- NOTE | 2018-03-24 15:55 | RAD ---
PQRS Compliance Statement: One or more of the following individualized dose reduction techniques were utilized for this examination: 1. Automated exposure control 2. Adjustment of the mA and/or kV according to patient size 3. Use of iterative reconstruction technique CT CHEST W/CONTRAST Clinical Indication: LUNG CA S/P RADIATION TREATMENT. Comparison: CT chest with contrast, December 02, 2017. TECHNIQUE: Helical CT imaging of the chest is performed after 75 cc Omnipaque 300 IV contrast. Findings: Atherosclerotic aortic arch. Subcentimeter mediastinal lymph nodes are stable. The great vessels are stable. There is coronary artery disease. Cardiac size normal, no pericardial effusion. No pleural effusion. There is unchanged radiation fibrosis with consolidation in the right upper lobe and perihilar with traction bronchiectasis and air bronchograms. The left lung is clear. Visualized upper abdomen unremarkable. No osteolytic or blastic lesion is identified. IMPRESSION: Stable post therapy findings in the right upper lobe. Electronically signed by: Pete Hansen MD (03/24/2018 3:52 PM) [id number]
[2018-03-25] MEDS ORDERED: LOSA100T7 PO (11:12)
== END 2018-03-24 13:05 | disposition home or self-care (01) ==
LOC: CT 07:40
PROVIDERS: ATTEND Radiology Radiation Oncology
DX: C34.11 Malignant neoplasm of upper lobe, right bronchus or lung (principal); I25.10 Atherosclerotic heart disease of native coronary artery without angina pectoris
CPT/HCPCS: 71260; Q9967

== ENCOUNTER → 2018-10-07 | Outpatient (CLI) | payer OTHER ==
[~2018-10-07] MED LIST changes: +CONTRAST GIVEN. MC PRN; +IOHEXOL 300 MG/ML 100ML VIAL. IV ONE; +LOSA-73 PO; +LOSA100T14 PO; -LOSA50TA2 PO; +PIOG15TA42 PO
--- NOTE | 2018-10-07 10:19 | RAD ---
CT of the chest with contrast, 10/07/2018: HISTORY: Lung cancer follow-up Multidetector CT imaging was performed following an IV bolus injection of iodinated contrast material. Comparison is made to a study from 03/24/2018. Right upper lobe atelectasis and traction bronchiectasis, presumably on a postradiation basis is unchanged. There are additional minimal linear scars in both lungs. No new pulmonary abnormality or mass is seen. There is no evidence of pleural fluid. There is moderate calcific plaquing of the thoracic aorta and its branches including the coronary arteries. No mediastinal adenopathy is seen. There are 2 incompletely healed rib fractures posterolaterally in the right upper chest. Mild scattered degenerative changes are present in the spine. IMPRESSION: 1. Stable post therapeutic changes in the right upper chest. 2. Incompletely healed right upper rib fractures. PQRS Compliance Statement: One or more of the following individualized dose reduction techniques were utilized for this examination: 1. Automated exposure control 2. Adjustment of the mA and/or kV according to patient size 3. Use of iterative reconstruction technique Electronically signed by: Baltazar Atwood MD (10/07/2018 10:16 AM) [facility]
== END | disposition home or self-care (01) ==
LOC: CT 07:47
PROVIDERS: ATTEND Radiology Radiation Oncology
DX: C34.91 Malignant neoplasm of unspecified part of right bronchus or lung (principal); J47.9 Bronchiectasis, uncomplicated; J98.11 Atelectasis
CPT/HCPCS: 71260; Q9967

== ENCOUNTER → 2019-04-06 | Outpatient (CLI) | payer OTHER ==
[~2019-04-06] MED LIST changes: -CONTRAST GIVEN. MC PRN; -GLIM2TAB2 PO; +GLIM2TAB3 PO
--- NOTE | 2019-04-07 07:49 | RAD ---
Examination: CT CHEST W/CONTRAST History: Lung cancer status post treatment Comparison/Correlation: 10/07/2018 CT chest with contrast Findings: Axial images of the chest were obtained following IV contrast. Sagittal and coronal reformatted images were provided. Coronary arterial calcifications are present. Scarring or atelectasis involving the medial right right lung field from the hilar region to the apex again seen. No pneumothorax. No suspicious pulmonary nodule or mass. No new infiltrates. Old right rib fractures again seen. No pleural or pericardial effusion. No suspicious bony findings. The visualized upper abdomen is unremarkable. Impression: No suspicious new findings. No significant change with right medial upper lung scarring or an atelectasis. PQRS Compliance Statement: One or more of the following individualized dose reduction techniques were utilized for this examination: 1. Automated exposure control 2. Adjustment of the mA and/or kV according to patient size 3. Use of iterative reconstruction technique Electronically signed by: Ash Fallon MD (04/07/2019 7:46 AM) [facility]
== END ==
LOC: CT 07:52
PROVIDERS: ATTEND Radiology Radiation Oncology
DX: C34.11 Malignant neoplasm of upper lobe, right bronchus or lung (principal); I25.10 Atherosclerotic heart disease of native coronary artery without angina pectoris; I10 Essential (primary) hypertension; E11.9 Type 2 diabetes mellitus without complications; K21.9 Gastro-esophageal reflux disease without esophagitis; E78.00 Pure hypercholesterolemia, unspecified; Z87.891 Personal history of nicotine dependence; Z90.89 Acquired absence of other organs
CPT/HCPCS: 71260; Q9967